=== PATIENT | female | born 1960 | race Caucasian/White ===

== ENCOUNTER 2018-10-07 12:20 | Observation (INO) | payer MEDICARE ==
[~2018-10-07] VITALS: Ht 170.2 cm; Wt 67.1 kg
[~2018-10-07 12:20] MED LIST: ALBU.083IS IH; ALBU3IS INH; ALBU90OI INH; ALBU90OI6 INH; ALBU90OI61 INH; ATENOLOL PO; AZIT250 PO; Ativan1 MG PO; BENZ100A PO; CEPACOL SORE T1 EACH MM; CIPR500 PO; Cyclobenzaprine5 MG PO; DOXY100 PO; FLUSAL2505; FLUSAL2505 INH; FLUSAL5005 INH; FLUT.05NI; Ferrousul325 MG PO; GUAI600T33 PO; HYDACE5; HYDACE5 PO; HYDCHL12.5 PO; HYDCHL25 PO; Hair, Skin & N1 EACH PO; LISHYD1012; LISI10; LISI20 PO; LISI5 PO; LORA1; LORA1 PO; MONT10T PO; OLME20; OMEP20ER PO; PRED10 PO; PRED20 PO; Percocet 5-3251 EACH PO; Prednisone20 MG PO; ROBITUSSIN COU118 M1 PO; SULTRIDS PO; TIOT18 INH; TUDORZA PRESS400 MCG; TUDORZA PRESS400 MCG IH; Ventolin Soln3 ML INH; Ventolin/Prove6.7 GM INH; Vibramycin100 MG PO; ZESTORETIC 20-1 EACH PO; Zithromax250 MG PO
[2018-10-07 13:21] LABS: BASOPHILS ABSOLUTE AUTO 0.06 K/mm3 (0.00-0.23); BASOPHILS PERCENT AUTO 1 % (0-2); EOSINOPHILS ABSOLUTE AUTO 0.56 K/mm3 (0.00-0.68); EOSINOPHILS PERCENT AUTO 10 % (0-6); Hematocrit 26.8 % (33.0-51.0); Hemoglobin 6.8 g/dL (11.5-16.0); IMMATURE GRAN ABSOLUTE AUTO 0.02 K/mm3 (0.00-0.10); IMMATURE GRAN PERCENT AUTO 0 % (0-1); LYMPHOCYTES PERCENT AUTO 22 % (21-46); MONOCYTES ABSOLUTE AUTO 0.49 K/mm3 (0.16-1.47); MONOCYTES PERCENT AUTO 8 % (4-13); Mean Corpuscular HGB Conc 25.4 g/dL (31.5-36.5); Mean Corpuscular Volume 67 fL (80-100); NEUTROPHILS ABSOLUTE AUTO 3.44 K/mm3 (1.96-9.15); NEUTROPHILS PERCENT AUTO 59 % (41-73); Platelet Count 533 K/mm3 (150-400); RDW Coefficient Variation 18.9 % (11.7-14.2); RDW Standard Deviation 44.5 fL (35.1-46.3); Red Blood Cell Count 4.01 M/mm3 (3.80-5.20); White Blood Cell Count 5.87 K/mm3 (4.00-11.30)
[2018-10-07 13:40] LABS: Alanine Aminotransfer (ALT/SGP 44 U/L (12-78); Albumin, Blood 3.4 g/dL (3.4-5.0); Albumin/Globulin Ratio 0.9 (0.8-1.8); Alk Phos 163 U/L (50-136); Anion Gap 8 mmol/L (6-16); Aspartate Aminotrans (AST/SGOT 31 U/L (12-37); Bilirubin, Total 0.3 mg/dL (0.1-1.0); Blood Urea Nitrogen 12 mg/dL (8-24); Bun/Creatinine Ratio 20.8 (12.0-20.0); CO2, Blood 25 mmol/L (21-32); Calcium, Blood 8.2 mg/dL (8.5-10.1); Chloride, Blood 107 mmol/L (98-108); Creatinine, Blood 0.58 mg/dL (0.40-1.00); Globulin, Blood 3.6 g/dL (2.2-4.0); Glomerular Filtration Rate >60 (60-); Glucose, Blood 93 mg/dL (70-99); Potassium, Blood 4.5 mmol/L (3.5-5.5); Sodium, Blood 140 mmol/L (136-145); Troponin I <0.015 ng/mL (0.000-0.040)
[2018-10-07 14:01] LABS: Influenza A Negative (NEGATIVE); Influenza B Negative (NEGATIVE)
--- NOTE | 2018-10-07 19:07 | NUR ---
NEW ADMIT SHIFT CHANGE ED ADMISSION. PATIENT ORIENTED TO ROOM AND BLOOD TRANSFUSION STARTED. CALL LIGHT IN REACH. REPORT GIVEN TO ONCOMING RN.
--- NOTE | 2018-10-08 04:59 | NUR ---
VSS, AFEBRILE, A/O, 20G R FA, PT COMPLETED HER 2 UNTIS PRBC W/OUT ADVERSE EFFECTS, PT C/O ANXIOUS AND WAS MEDICATED X 1, SLEPT WELL AFTER THAT. NO FURTHER COMPLAINTS.
--- NOTE | 2018-10-08 06:14 | NUR ---
INFECTION CONTROL CALLED ABOUT THE PT REGARDING HER STATUS ISOLATION FOR HISTORY OF MRSA. IT WAS DETERMINED THAT PT IS LOW RISK AND CAN BE REMOVED FROM ISOLATION IMMEDIATELY. WILL REPORT TO ON-COMING SHIFT.
[2018-10-08 06:59] LABS: Hematocrit 30.3 % (33.0-51.0)
[2018-10-08] MEDS ORDERED: ALBU90OI INH (08:50)
[2018-10-08] MEDS ORDERED: DULERA 200 MCG/13 GM INH (08:54)
[2018-10-08] MEDS ORDERED: Fruity C250 MG PO (08:55)
--- NOTE | 2018-10-08 09:54 | NUR ---
DISCHARGE DISCHARGE MEDICATIONS AND INSTRUCTIONS EXPLAINED TO PATIENT. PATIENT STATED UNDERSTANDING. IV REMOVED WITHOUT DIFFICULTY. BELONGINGS WITH PATIENT. PATIENT LEFT VIA PRIVATE VEHICLE.
== END 2018-10-08 09:46 | disposition home or self-care (01) ==
LOC: ER 12:20 → MEDS 12:21
PROVIDERS: Physician Assistant; ADMIT Hospitalist
DX: D50.9 Iron deficiency anemia, unspecified (principal); I10 Essential (primary) hypertension; J44.9 Chronic obstructive pulmonary disease, unspecified; K21.9 Gastro-esophageal reflux disease without esophagitis; Z88.0 Allergy status to penicillin; Z91.041 Radiographic dye allergy status; Z88.5 Allergy status to narcotic agent; Z79.899 Other long term (current) drug therapy; Z87.891 Personal history of nicotine dependence
CPT/HCPCS: 36415; 36416; 36430; 71046; 80053; 84484; 85014; 85018; 85025; 86850; 86900; 86901; 86923; 87804; 93005; 93010; 94640; 94644; 94760; 96374; 99285-25; G0378; J2930; J7050; P9016

== ENCOUNTER 2018-11-28 09:47 | Day surgery (SDC) | payer MEDICARE ==
[~2018-11-28] VITALS: Ht 170.2 cm; Wt 65.3 kg
[~2018-11-28 09:47] MED LIST changes: +DULERA 200 MCG/13 GM INH; +FLUT1DIS8 INH; +Fruity C250 MG PO; +LORA.5 PO; +TUDORZA PRESS400 MCG INH; +ZESTORETIC 20-251 EA PO
--- NOTE | 2018-11-28 11:10 | NUR ---
11/28/18 1110 Lucie Solis PT LS COARSE T/O AFTER BREATHING TREATMENT.
== END 2018-11-28 12:15 | disposition home or self-care (01) ==
LOC: ORSCSDS 09:47
PROVIDERS: Internal Medicine Gastroenterology
PROC: 0DJD8ZZ Inspection of Lower Intestinal Tract, Via Natural or Artificial Opening Endoscopic (ICD-10-PCS; principal; 2018-11-28 11:15)
DX: D50.9 Iron deficiency anemia, unspecified (principal); Z86.010 Personal history of colon polyps; F41.9 Anxiety disorder, unspecified; I10 Essential (primary) hypertension; K59.00 Constipation, unspecified; J44.9 Chronic obstructive pulmonary disease, unspecified; Z87.891 Personal history of nicotine dependence; Z79.899 Other long term (current) drug therapy
CPT/HCPCS: J7120

== ENCOUNTER 2018-12-26 09:57 | Day surgery (SDC) | payer MEDICARE ==
[~2018-12-26] VITALS: Ht 170.2 cm; Wt 65.0 kg
[~2018-12-26 09:57] MED LIST changes: +ALBU2.5V5
--- NOTE | 2018-12-26 12:08 | NUR ---
12/26/18 1208 Dyana Cornelius INJECTED INTO IRRIGATION PER DR ROWE.
== END 2018-12-26 12:53 | disposition home or self-care (01) ==
LOC: ORSCSDS 09:57
PROVIDERS: Internal Medicine Gastroenterology
PROC: 0DBL8ZX Excision of Transverse Colon, Via Natural or Artificial Opening Endoscopic, Diagnostic (ICD-10-PCS; principal; 2018-12-26 11:00)
DX: D50.9 Iron deficiency anemia, unspecified (principal); D12.3 Benign neoplasm of transverse colon; K59.00 Constipation, unspecified; Z86.010 Personal history of colon polyps; K57.30 Diverticulosis of large intestine without perforation or abscess without bleeding; K64.8 Other hemorrhoids; Z87.891 Personal history of nicotine dependence; J44.9 Chronic obstructive pulmonary disease, unspecified; I10 Essential (primary) hypertension; Z79.899 Other long term (current) drug therapy
CPT/HCPCS: 88305; J2250; J2704; J7120

== ENCOUNTER 2018-12-30 15:40 | Emergency (ER) | payer MEDICARE | END 2018-12-30 16:05 | disposition left against medical advice (07) | LOC: ER 15:40 | DX: Z53.21 Procedure and treatment not carried out due to patient leaving prior to being seen by health care provider (principal) ==

== ENCOUNTER 2019-07-24 18:03 | Observation (INO) | payer MEDICARE ==
[~2019-07-24] VITALS: Ht 170.2 cm; Wt 58.3 kg
[~2019-07-24 18:03] MED LIST changes: +ASPI325EC PO; +Norco 5-325 Ta1 EACH PO
[2019-07-24 18:33] LABS: BASOPHILS ABSOLUTE AUTO 0.01 K/mm3 (0.00-0.23); BASOPHILS PERCENT AUTO 0 % (0-2); EOSINOPHILS ABSOLUTE AUTO 0.01 K/mm3 (0.00-0.68); EOSINOPHILS PERCENT AUTO 0 % (0-6); Hematocrit 21.3 % (33.0-51.0); IMMATURE GRAN ABSOLUTE AUTO 0.05 K/mm3 (0.00-0.10); IMMATURE GRAN PERCENT AUTO 1 % (0-1); LYMPHOCYTES ABSOLUTE AUTO 0.28 K/mm3 (0.84-5.20); LYMPHOCYTES PERCENT AUTO 3 % (21-46); MONOCYTES ABSOLUTE AUTO 0.05 K/mm3 (0.16-1.47); MONOCYTES PERCENT AUTO 1 % (4-13); Mean Corpuscular HGB 14.5 pg (26.0-34.0); Mean Corpuscular HGB Conc 23.5 g/dL (31.5-36.5); Mean Corpuscular Volume 62 fL (80-100); Mean Platelet Volume 8.7 fL (9.1-12.4); NEUTROPHILS ABSOLUTE AUTO 8.94 K/mm3 (1.96-9.15); NEUTROPHILS PERCENT AUTO 96 % (41-73); Platelet Count 500 K/mm3 (150-400); RDW Coefficient Variation 20.2 % (11.7-14.2); RDW Standard Deviation 43.9 fL (35.1-46.3); Red Blood Cell Count 3.46 M/mm3 (3.80-5.20); White Blood Cell Count 9.34 K/mm3 (4.00-11.30)
[2019-07-24 18:51] LABS: Alanine Aminotransfer (ALT/SGP 21 U/L (12-78); Albumin, Blood 3.1 g/dL (3.4-5.0); Albumin/Globulin Ratio 0.8 (0.8-1.8); Alk Phos 151 U/L (50-136); Anion Gap 8 mmol/L (6-16); Aspartate Aminotrans (AST/SGOT 19 U/L (12-37); Bilirubin, Total 0.4 mg/dL (0.1-1.0); Blood Urea Nitrogen 11 mg/dL (8-24); Bun/Creatinine Ratio 20.4 (12.0-20.0); CO2, Blood 21 mmol/L (21-32); Calcium, Blood 8.2 mg/dL (8.5-10.1); Chloride, Blood 107 mmol/L (98-108); Creatinine, Blood 0.54 mg/dL (0.40-1.00); Globulin, Blood 3.7 g/dL (2.2-4.0); Glomerular Filtration Rate >60 (60-); Glucose, Blood 131 mg/dL (70-99); Potassium, Blood 3.7 mmol/L (3.5-5.5); Sodium, Blood 136 mmol/L (136-145); Total Protein, Blood 6.8 g/dL (6.4-8.2); Troponin I <0.015 ng/mL (0.000-0.040)
[2019-07-24 19:55] LABS: Source, Urine Clean Catch
[2019-07-24 20:00] LABS: Appearance, Urine Clear (Clear); Bilirubin, Urine Neg (Neg); Blood, Urine Neg (Neg); Color, Urine Yellow (P-Yellow); Glucose Qualitative, Urine Neg (Neg); Ketones, Urine Neg (Neg); Leukocyte Esterase, Urine 3+ (Neg); Nitrite, Urine Neg (Neg); Protein, Urine Neg (Neg); Specific Gravity, Urine 1.015 (1.003-1.022); Urobilinogen, Urine NORM (Normal)
[2019-07-24 20:31] LABS: Bacteria Few /hpf; Red Blood Cells, Urine 0-2 /hpf (0-2); Squamous Epithelial Cells Few /hpf (Few)
[2019-07-24] MEDS ORDERED: LORA.5 PO (20:45)
--- NOTE | 2019-07-25 02:33 | NUR ---
Patient alert and oriented. B/P elevated to 200/100s, hydralazine given. No complaints of chest pain or SOB. 2 units of PRBC transfused. Ambulating to bathroom with standby assist. Voiding freely. Tolerating Po intake.
[2019-07-25 04:50] LABS: Hematocrit 26.2 % (33.0-51.0); Hemoglobin 7.1 g/dL (11.5-16.0); Mean Corpuscular HGB 17.2 pg (26.0-34.0); Mean Corpuscular HGB Conc 27.1 g/dL (31.5-36.5); Mean Corpuscular Volume 63 fL (80-100); Mean Platelet Volume 8.7 fL (9.1-12.4); NRBC ABSOLUTE 0.08 K/mm3 (0.00-0.02); NRBC Auto 0.9 /100 WBC (0.0-0.2); Platelet Count 510 K/mm3 (150-400); Red Blood Cell Count 4.13 M/mm3 (3.80-5.20); White Blood Cell Count 8.55 K/mm3 (4.00-11.30)
[2019-07-25 05:11] LABS: Alanine Aminotransfer (ALT/SGP 19 U/L (12-78); Albumin, Blood 3.2 g/dL (3.4-5.0); Albumin/Globulin Ratio 0.9 (0.8-1.8); Alk Phos 157 U/L (50-136); Anion Gap 7 mmol/L (6-16); Aspartate Aminotrans (AST/SGOT 14 U/L (12-37); Bilirubin, Total 2.2 mg/dL (0.1-1.0); Blood Urea Nitrogen 13 mg/dL (8-24); Bun/Creatinine Ratio 21.3 (12.0-20.0); CO2, Blood 24 mmol/L (21-32); Calcium, Blood 8.6 mg/dL (8.5-10.1); Chloride, Blood 108 mmol/L (98-108); Creatinine, Blood 0.61 mg/dL (0.40-1.00); Globulin, Blood 3.7 g/dL (2.2-4.0); Glomerular Filtration Rate >60 (60-); Glucose, Blood 111 mg/dL (70-99); Potassium, Blood 3.7 mmol/L (3.5-5.5); Sodium, Blood 139 mmol/L (136-145); Total Protein, Blood 6.9 g/dL (6.4-8.2)
--- NOTE | 2019-07-25 07:15 | NUR ---
REPORT REC'D FROM CORINA ZURITA. PT AWAKE, A&O, ASSESSMENT NOTED. REPORTS FEELING SLEEPY FROM ALL THE ACTIVITY LAST NIGHT AND WANTING TO SLEEP UNDISTURBED. REQUESTED YOGURT AND APPLEJUICE - PROVIDED THEN DOOR CLOSED FOR PRIVACY AND QUIET. WILL ADMINISTER MEDS ORDERED AND MONITOR ACCORDING TO P&P AND PRN. CALL LIGHT IN REACH.
[2019-07-25 09:47] LABS: Adenovirus Not Detected (NOT DETECT); Bordetella pertussis Not Detected (NOT DETECT); Chlamydophila pneumoniae Not Detected (NOT DETECT); Coronavirus 229E Not Detected (NOT DETECT); Coronavirus HKU1 Not Detected (NOT DETECT); Coronavirus NL63 Not Detected (NOT DETECT); Coronavirus OC43 Not Detected (NOT DETECT); Human Metapneumovirus Not Detected (NOT DETECT); Human Rhinovirus/Enterovirus Detected (NOT DETECT); Influenza A Not Detected (NOT DETECT); Influenza A/2009-H1 Not Detected (NOT DETECT); Influenza A/H1 Not Detected (NOT DETECT); Influenza A/H3 Not Detected (NOT DETECT); Influenza B Not Detected (NOT DETECT); Mycoplasma pneumoniae Not Detected (NOT DETECT); Parainfluenza Virus 1 Not Detected (NOT DETECT); Parainfluenza Virus 2 Not Detected (NOT DETECT); Parainfluenza Virus 3 Not Detected (NOT DETECT); Parainfluenza Virus 4 Not Detected (NOT DETECT); Respiratory Syncytial Virus Not Detected (NOT DETECT)
--- NOTE | 2019-07-25 14:15 | NUR ---
LAST UNIT PRBC'S INFUSED. NO COMPLICATIONS. VSS. DC INSTRUCTIONS PROVIDED TO PT AND S.O. WRITTEN AND VERBAL. PT ASKED FOR SCRIPTS. NONE WERE PROVIDED PT WAS BEING DISCHARGED ON CURRENT HOME MEDICATIONS. PT STATED SHE HAD NONE OF THE MEDS AT HOME. I PLACED A CALL TO [facility] TO VERIFY THEY HAD HER CURRENT MEDS WITH AVAILABLE REFILLS FOR BOTH INHALERS AND BP MEDS. IN ADDITON, [facility] PROVIDED COUPONS FOR DISCOUNT WHEN PICKING UP SCRIPTS. IV DC'D INTACT. PT STATED UNDERSTANDING OF INSRUCTIONS.
== END 2019-07-25 14:28 | disposition home or self-care (01) ==
LOC: ER 18:03 → PCU 18:04
PROVIDERS: Emergency Medicine; ADMIT Internal Medicine
DX: D50.9 Iron deficiency anemia, unspecified (principal); K44.9 Diaphragmatic hernia without obstruction or gangrene; G31.89 Other specified degenerative diseases of nervous system; F41.9 Anxiety disorder, unspecified; I10 Essential (primary) hypertension; R07.9 Chest pain, unspecified; K21.9 Gastro-esophageal reflux disease without esophagitis; F15.11 Other stimulant abuse, in remission; J44.1 Chronic obstructive pulmonary disease with (acute) exacerbation; F17.200 Nicotine dependence, unspecified, uncomplicated; Z88.8 Allergy status to other drugs, medicaments and biological substances; Z88.0 Allergy status to penicillin; Z88.5 Allergy status to narcotic agent; Z91.041 Radiographic dye allergy status; Z79.899 Other long term (current) drug therapy; Z79.82 Long term (current) use of aspirin; Z79.51 Long term (current) use of inhaled steroids
CPT/HCPCS: 0099U; 36415; 36430; 71046; 80053; 81001; 83880; 84484; 85025; 85027; 86850; 86900; 86901; 86923; 87081; 87086; 90686; 93005; 93010; 94640; 94760; 96374; 99285-25; C9113; J0360; J1650; J2916; J2930; J7030; J7512; P9016

== ENCOUNTER 2019-08-24 11:32 | Inpatient (IN) | payer MEDICARE ==
[~2019-08-24] VITALS: Ht 170.2 cm; Wt 60.0 kg
[~2019-08-24 11:32] MED LIST changes: +ALBU2.5V5 INH
[2019-08-24] MEDS ORDERED: ALBUTEROL (12:18)
[2019-08-24 12:22] LABS: BASOPHILS ABSOLUTE AUTO 0.11 K/mm3 (0.00-0.23); BASOPHILS PERCENT AUTO 1 % (0-2); EOSINOPHILS ABSOLUTE AUTO 0.82 K/mm3 (0.00-0.68); EOSINOPHILS PERCENT AUTO 4 % (0-6); Hematocrit 35.9 % (33.0-51.0); Hemoglobin 10.2 g/dL (11.5-16.0); IMMATURE GRAN ABSOLUTE AUTO 0.14 K/mm3 (0.00-0.10); IMMATURE GRAN PERCENT AUTO 1 % (0-1); LYMPHOCYTES ABSOLUTE AUTO 1.38 K/mm3 (0.84-5.20); LYMPHOCYTES PERCENT AUTO 6 % (21-46); MONOCYTES ABSOLUTE AUTO 1.26 K/mm3 (0.16-1.47); MONOCYTES PERCENT AUTO 5 % (4-13); Mean Corpuscular HGB 20.4 pg (26.0-34.0); Mean Corpuscular HGB Conc 28.4 g/dL (31.5-36.5); Mean Corpuscular Volume 72 fL (80-100); Mean Platelet Volume 8.3 fL (9.1-12.4); NEUTROPHILS ABSOLUTE AUTO 19.83 K/mm3 (1.96-9.15); NEUTROPHILS PERCENT AUTO 84 % (41-73); Platelet Count 431 K/mm3 (150-400); RDW Coefficient Variation 26.6 % (11.7-14.2); RDW Standard Deviation 66.5 fL (35.1-46.3); Red Blood Cell Count 5.01 M/mm3 (3.80-5.20); White Blood Cell Count 23.54 K/mm3 (4.00-11.30)
[2019-08-24 12:43] LABS: Alanine Aminotransfer (ALT/SGP 200 U/L (12-78); Albumin, Blood 3.4 g/dL (3.4-5.0); Albumin/Globulin Ratio 0.7 (0.8-1.8); Alk Phos 246 U/L (50-136); Anion Gap 8 mmol/L (6-16); Aspartate Aminotrans (AST/SGOT 198 U/L (12-37); Bilirubin, Total 0.3 mg/dL (0.1-1.0); Blood Urea Nitrogen 17 mg/dL (8-24); Bun/Creatinine Ratio 26.4 (12.0-20.0); CO2, Blood 23 mmol/L (21-32); Calcium, Blood 8.9 mg/dL (8.5-10.1); Chloride, Blood 107 mmol/L (98-108); Creatinine, Blood 0.65 mg/dL (0.40-1.00); Globulin, Blood 4.6 g/dL (2.2-4.0); Glomerular Filtration Rate >60 (60-); Glucose, Blood 126 mg/dL (70-99); Potassium, Blood 4.7 mmol/L (3.5-5.5); Sodium, Blood 138 mmol/L (136-145); Troponin I <0.015 ng/mL (0.000-0.040)
[2019-08-24 16:34] LABS: Base Excess Venous -1.5 mmol/L; Bicarbonate Venous 22.9 mmol/L (24.0-30.0); PCO2 Venous 40.4 mmHg (38-42); PO2 Venous 41.4 mmHg (38-42); pH Blood Venous 7.38 (7.34-7.37)
--- NOTE | 2019-08-24 22:22 | NUR ---
START OF SHIFT: REPORT FROM JEAN RN. PT LYING IN BED WATCHING TV. ASSESSMENT WITH PT CONTINUING HTN (PRIOR VALUES NOTED T/O DAY SHIFT). PT'S HOME MEDICATIONS VERIFIED AND HOSPITLIST NOTIFIED (SEE NEW ORDERS). PT LS COARSE T/O C EXP WHEEZE (SAME NOTED ON ADMIT PER MED), PT SATS 96-97% ON RA WHILE AWAKE. 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 PT STATED THAT SHE WAS SO TIRED AND JUST WANTED TO SLEEP. PT ALSO STATES, "THIS IS THE BEST SLEEP THAT I'VE HAD IN A WHILE". NO ATIVAN ORDERED. PT LATER INDEPENDENTLY UP OUT OF BED TO TOILET, THIS RN ENTERED ROOM FROM HEARING PT UP. PT AMBULATED SELF TO RESTROOM PUSHING IV POLE WITHOUT DIFFICULTY AND NO C/O INCREASED SOB. PT STATED, "THIS IS WHAT I DO AT HOME, EXCEPT I DON'T HAVE THIS (IV POLE)" PT USES CALL LIGHT APPROPRIATELY, WILL CONTINUE TO MONITOR.
--- NOTE | 2019-08-25 00:44 | NUR ---
UPDATE/MD NOTIFIED: PT FAMILY VISITED THEN WENT HOME. PT UP TO RESTROOM THEN C/O INCREASED SOB AND ANXIETY. VITALS PT REMAINS HYPERTENSIVE, SATS ONCE BACK TO BED 84% ON RA. PT REQUESTED BIPAP-DARÍO RT TO ROOM AND REQUESTED PT TO TRY THE ATIVAN AGAIN. DR. QUIROS NOTIFIED AND UPDATED. NEW ORDERS FOR ATIVAN AND HYDRALAZINE (SEE NEW ORDERS). WILL CONTINUE TO MONITOR.
--- NOTE | 2019-08-25 01:50 | NUR ---
CP/SOB: PT C/O CRUSHING CP AND INCREASED SOB. EKG DONE. DR. QUIROS NOTIFIED. NEW ORDERS TO GET ABG PRIOR TO APPLYING OXYGEN. STAT TROPONIN. DARÍO RT, LEARNING AND DEVELOPMENT ASSISTANT, AND LAB NOTIFIED.
[2019-08-25 01:58] LABS: PCO2 Arterial 28.9 mmHg (35-45); PO2 Arterial 62.3 mmHg (80-100); pH Blood Arterial 7.48 (7.35-7.45)
[2019-08-25 02:13] LABS: BASOPHILS ABSOLUTE AUTO 0.05 K/mm3 (0.00-0.23); BASOPHILS PERCENT AUTO 0 % (0-2); EOSINOPHILS ABSOLUTE AUTO 0.01 K/mm3 (0.00-0.68); EOSINOPHILS PERCENT AUTO 0 % (0-6); Hematocrit 32.1 % (33.0-51.0); IMMATURE GRAN ABSOLUTE AUTO 0.27 K/mm3 (0.00-0.10); IMMATURE GRAN PERCENT AUTO 1 % (0-1); LYMPHOCYTES ABSOLUTE AUTO 0.91 K/mm3 (0.84-5.20); LYMPHOCYTES PERCENT AUTO 3 % (21-46); MONOCYTES ABSOLUTE AUTO 0.31 K/mm3 (0.16-1.47); MONOCYTES PERCENT AUTO 1 % (4-13); Mean Corpuscular HGB 20.3 pg (26.0-34.0); Mean Corpuscular Volume 73 fL (80-100); Mean Platelet Volume 8.3 fL (9.1-12.4); NEUTROPHILS ABSOLUTE AUTO 29.31 K/mm3 (1.96-9.15); NEUTROPHILS PERCENT AUTO 95 % (41-73); Platelet Count 394 K/mm3 (150-400); RDW Coefficient Variation 26.2 % (11.7-14.2); RDW Standard Deviation 67.1 fL (35.1-46.3); Red Blood Cell Count 4.43 M/mm3 (3.80-5.20); White Blood Cell Count 30.86 K/mm3 (4.00-11.30)
[2019-08-25 02:31] LABS: Anion Gap 8 mmol/L (6-16); Blood Urea Nitrogen 13 mg/dL (8-24); Bun/Creatinine Ratio 28.6 (12.0-20.0); CO2, Blood 23 mmol/L (21-32); Calcium, Blood 9.5 mg/dL (8.5-10.1); Chloride, Blood 108 mmol/L (98-108); Creatinine, Blood 0.46 mg/dL (0.40-1.00); Glomerular Filtration Rate >60 (60-); Glucose, Blood 142 mg/dL (70-99); Sodium, Blood 139 mmol/L (136-145)
[2019-08-25 02:38] LABS: Percent Saturation 3.5 % (15.0-50.0)
--- NOTE | 2019-08-25 02:58 | NUR ---
DR. MURPHY NOTIFIED: ORDERS TO KEEP PT PCU STATUS FOR NOW, PLACE ON BIPAP, ADMINISTER 2-3 BRONCHODILATORS BACK TO BACK.
--- NOTE | 2019-08-25 04:42 | NUR ---
UPDATE: PT TOLERATING BIPAP WELL. PT CURRENTLY SLEEPING. SATS 94%. HR 119. BIPAP: 10/5, RATE 12, FiO2 25%.
--- NOTE | 2019-08-25 08:31 | NUR ---
PT EXPRESSED UPSET ABOUT HER DIET ORDER AND STS THAT SHE WISHES TO LEAVE, CALLING DR DAVENPORT TO PDATE
--- NOTE | 2019-08-25 11:44 | NUR ---
PT BEGINS SHOUTING THAT SHE "NEEDS ATIVAN" STS THAT IS THE ONLY WAY SHE WILL BE ABLE TO WEAR BIPAP MASK, PT NOTIFIED THAT ORDERS WILL NEED TO BE REVIEWED PT STS "YOU HAVE IT ORDERED THE RT SAID I NEED IT" PT EDUCATED THAT THERE ARE NO NEW ORDERS FOR ATIVAN OR PRN PT STS "WELL I DON'T KNOW WHAT TO DO THEN" PT IS NOW HOLDING BIPAP MASK TO HER FACE WITH HAND. VSS 99% ON 2L NC, HR 123
--- NOTE | 2019-08-25 19:05 | NUR ---
ATTEMPTED BEDSIDE REPORT WITH PT. PT APPEARS TO BE SLEEPING, DID NOT WAKE. PT HAS REMAINED STABLE SINCE ASSUMING CARE AT 1500. PT STILL WITH OCCASIONAL WHEEZY COUGH, VSS, WAS ABLE TO TURN O2 DOWN TO 2L SINCE PT MAINTAING 94-95%. ALL SCHED MEDS GIVEN. NO OTHER ACUTE CHANGES NOTED.
--- NOTE | 2019-08-25 20:15 | NUR ---
CARE ASSUMPTION PT A&O X4. VSS. MONITOR SHOWS ST, HR 110's. SPO2 > 90% ON 2L NC. LUNG SOUNDS DIM T/O. PT TEARFUL, STATING, "I'M SORRY, I'M JUST READY TO BE OUT OF HERE. THERE'S NOTHING WRONG WITH ME ANYMORE, I'M JUST READY TO GO." PT DENIES SOB OR DIFFICULTY BREATHING. WILL CONTINUE TO MONITOR AND PROVIDE CARE.
[2019-08-26 04:04] LABS: BASOPHILS ABSOLUTE AUTO 0.03 K/mm3 (0.00-0.23); BASOPHILS PERCENT AUTO 0 % (0-2); EOSINOPHILS PERCENT AUTO 0 % (0-6); Hematocrit 30.1 % (33.0-51.0); Hemoglobin 8.3 g/dL (11.5-16.0); IMMATURE GRAN ABSOLUTE AUTO 0.47 K/mm3 (0.00-0.10); IMMATURE GRAN PERCENT AUTO 2 % (0-1); LYMPHOCYTES ABSOLUTE AUTO 0.72 K/mm3 (0.84-5.20); LYMPHOCYTES PERCENT AUTO 3 % (21-46); MONOCYTES ABSOLUTE AUTO 0.52 K/mm3 (0.16-1.47); MONOCYTES PERCENT AUTO 2 % (4-13); Mean Corpuscular HGB 20.1 pg (26.0-34.0); Mean Corpuscular HGB Conc 27.6 g/dL (31.5-36.5); Mean Corpuscular Volume 73 fL (80-100); Mean Platelet Volume 8.4 fL (9.1-12.4); NEUTROPHILS PERCENT AUTO 94 % (41-73); Platelet Count 410 K/mm3 (150-400); RDW Coefficient Variation 26.7 % (11.7-14.2); Red Blood Cell Count 4.12 M/mm3 (3.80-5.20); White Blood Cell Count 28.24 K/mm3 (4.00-11.30)
[2019-08-26 04:22] LABS: Anion Gap 7 mmol/L (6-16); Blood Urea Nitrogen 23 mg/dL (8-24); Bun/Creatinine Ratio 39.2 (12.0-20.0); CO2, Blood 25 mmol/L (21-32); Calcium, Blood 8.9 mg/dL (8.5-10.1); Chloride, Blood 110 mmol/L (98-108); Creatinine, Blood 0.59 mg/dL (0.40-1.00); Glomerular Filtration Rate >60 (60-); Glucose, Blood 122 mg/dL (70-99); Potassium, Blood 4.1 mmol/L (3.5-5.5); Sodium, Blood 142 mmol/L (136-145)
--- NOTE | 2019-08-26 04:31 | NUR ---
SHIFT SUMMARY PT CONTINUES TO BE A&O X4. VSS. MONITOR SHOWS ST, HR 110's. SPO2 > 90% ON RA TITRATED FROM 2L NC. BIPAP AT BEDSIDE, UNUSED BY PT THIS SHIFT. LUNG SOUNDS DIM T/O. PT W/ EPISODE OF TEARFULNESS UPON CARE ASSUMPTION W/ NO FURTHER EPISODES THIS SHIFT. PT PLEASANT AND COOPERATIVE, REPORTING HUNGER ONLY COMPLAINT THIS SHIFT STATING, "THE CARDIAC TRAYS JUST DON'T HAVE ENOUGH FOOD." PT PROVIDED W/ SNACKS THIS SHIFT REQUESTED BY PT, FOLLOWING DIET ORDERS. PT INDEPENDENT IN ROOM W/ FAMILY MEMBER AT BEDSIDE T/O NIGHT. WILL CONTINUE TO MONITOR AND PROVIDE CARE UNTIL REPORT OFF TO DAY SHIFT RN.
--- NOTE | 2019-08-26 08:00 | NUR ---
PT PLEASANT COOP A/O. DENIES PAIN AT THIS TIME. H/R IRREG, NO MURMER NOTED. PER TELE S TACH AT 112. LUNGS CLEAR UPPER WITH LIGHT COARSNESS IN BASES. ON R.A. BT X4 LAST BM TODAY. STATES WAS ON FIRM SIDE. VOIDS PER BATHROOM. INDEPENDANT ON ROOM. BED IN LOW POSITION, CALL LITE IN REACH, CALLS APPRP
[2019-08-26 09:48] LABS: Vancomycin, Trough 10.5 ug/mL (5.0-10.0)
[2019-08-26 11:09] LABS: Thyroid Stimulating Hormone 0.173 uIU/mL (0.360-4.800)
[2019-08-26 12:35] LABS: Free Thyroxine 0.82 ng/dL (0.70-1.60)
[2019-08-26 12:37] LABS: Triiodothyronine, Free 1.33 pg/mL (2.18-3.98)
--- NOTE | 2019-08-26 14:29 | NUR ---
[facility] care visit conducted. Patient is lying in bed and alert. Patient tells me about her stress and the business of her life. 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 Patient tells me about her lisa systemn that is a mix of Oriental Orthodox, Gnosticist and . I listen empathically, normalize patient's experience, reinforce helpful attitudes and practices and provide spiritual guidance and prayer. Patient responds well and shows signs of reduced stress. I will continue remain available to patient and family.
--- NOTE | 2019-08-26 15:18 | NUR ---
DR GARCIA D/Tre IVF
--- NOTE | 2019-08-26 19:55 | NUR ---
PT PLEASANT TODAY. HUSB IN ROOM MUCH OF DAY. PLEASANT ALSO. PT STATES FEELING SLOW IMPROVEMENT. MAY GET TO GO HOME TOMORROW PER PT. NO OTHER CONCERNS AT THIS TIME. BED IN LOW POSITIOIN, CALL LITE IN REACH, CALLS APPROP
[2019-08-27 04:42] LABS: BASOPHILS ABSOLUTE AUTO 0.04 K/mm3 (0.00-0.23); BASOPHILS PERCENT AUTO 0 % (0-2); EOSINOPHILS ABSOLUTE AUTO 0.01 K/mm3 (0.00-0.68); EOSINOPHILS PERCENT AUTO 0 % (0-6); Hematocrit 30.6 % (33.0-51.0); Hemoglobin 8.5 g/dL (11.5-16.0); IMMATURE GRAN ABSOLUTE AUTO 0.69 K/mm3 (0.00-0.10); IMMATURE GRAN PERCENT AUTO 3 % (0-1); LYMPHOCYTES ABSOLUTE AUTO 1.02 K/mm3 (0.84-5.20); LYMPHOCYTES PERCENT AUTO 4 % (21-46); MONOCYTES ABSOLUTE AUTO 0.55 K/mm3 (0.16-1.47); MONOCYTES PERCENT AUTO 2 % (4-13); Mean Corpuscular HGB 20.2 pg (26.0-34.0); Mean Corpuscular HGB Conc 27.8 g/dL (31.5-36.5); Mean Corpuscular Volume 73 fL (80-100); Mean Platelet Volume 8.2 fL (9.1-12.4); NEUTROPHILS ABSOLUTE AUTO 20.67 K/mm3 (1.96-9.15); NEUTROPHILS PERCENT AUTO 90 % (41-73); NRBC ABSOLUTE 0.03 K/mm3 (0.00-0.02); NRBC Auto 0.1 /100 WBC (0.0-0.2); Platelet Count 425 K/mm3 (150-400); RDW Coefficient Variation 26.4 % (11.7-14.2); RDW Standard Deviation 67.7 fL (35.1-46.3); Red Blood Cell Count 4.21 M/mm3 (3.80-5.20); White Blood Cell Count 22.98 K/mm3 (4.00-11.30)
[2019-08-27 05:00] LABS: Alanine Aminotransfer (ALT/SGP 109 U/L (12-78); Anion Gap 5 mmol/L (6-16); Aspartate Aminotrans (AST/SGOT 45 U/L (12-37); Blood Urea Nitrogen 26 mg/dL (8-24); Bun/Creatinine Ratio 47.9 (12.0-20.0); CO2, Blood 26 mmol/L (21-32); Calcium, Blood 8.5 mg/dL (8.5-10.1); Chloride, Blood 111 mmol/L (98-108); Creatinine, Blood 0.54 mg/dL (0.40-1.00); Glomerular Filtration Rate >60 (60-); Glucose, Blood 121 mg/dL (70-99); Magnesium, Blood 2.1 mg/dL (1.6-2.4); Potassium, Blood 4.1 mmol/L (3.5-5.5); Sodium, Blood 142 mmol/L (136-145)
--- NOTE | 2019-08-27 07:55 | NUR ---
SHIFT SUMMARY PT SLEEPING IN ROOM COMFORTABLY AT THIS TIME. NO ACUTE CHANGES IN STATUS T/O NIGHT. PT REMAINED IN ST T/O NIGHT, DENIED ANY CP OR SOB. RESP EVEN UNLABORED ON RA W/ SATS >92%. PT BP REMAINED ELEVATED T/O NIGHT. CARDIOLOGY ON CASE. PT DENIED OTHER NEEDS T/O NIGHT. RECEIVED IV ABX PER EMAR. CALL LIGHT IN REACH. PT CALLED APPROPRIATELY.
--- NOTE | 2019-08-27 10:10 | NUR ---
AM NOTE. ASSUMED CARE OF PT APROX 0700. PT IS A&Ox4 AND SBA/IND IN THE ROOM. PT WAS ADMITTED FOR COPD EXAC. PT IS ALSO VERY HYPERTENSIVE 172/110. PT DENIES CHEST PAIN/PRESSURE OR HEADACHE AT THIS TIME. PT WAS MEDICATED PER EMAR WITH GOOD RESULTS OF 151/91. PT IS ON RA WITH O2 SATS >92%. L/S DIM AND COARSE T/O. PT IS SR/ST IN THE 90'S-100'S, NO EVENTS NOTED ON TELE. BT PRESENT AND NORMOACTIVE. ABD IS SOFT AND NONTENDER TO PALP. PT HAS BEEN ANXIOUS AND TEARFUL THIS AM. CALL LIGHT IN REACH, WILL CONTINUE TO MONITOR.
[2019-08-27 10:22] LABS: U Amphetamine Screen Not Detected; U Barbituate Screen Not Detected; U Benzodiazapine Screen Not Detected; U Buprenorphine Screen Not Detected; U Cannabinoids Screen Not Detected; U Cocaine Screen Not Detected; U Methadone Screen Not Detected; U Methamphetamine Screen Not Detected; U Opiates Screen Not Detected; U Oxycodone Screen Not Detected; U Phencyclidine Screen Not Detected; U Propoxyphene Screen Not Detected
--- NOTE | 2019-08-27 13:41 | NUR ---
Met pt. in bed and she reports to be doing well offered prayers.
[2019-08-27 14:06] LABS: Stool Occult Blood Guaiac 1 Pos (Neg)
[2019-08-27 14:38] LABS: Adenovirus Not Detected (NOT DETECT); Bordetella pertussis Not Detected (NOT DETECT); Chlamydophila pneumoniae Not Detected (NOT DETECT); Coronavirus 229E Not Detected (NOT DETECT); Coronavirus HKU1 Not Detected (NOT DETECT); Coronavirus NL63 Not Detected (NOT DETECT); Coronavirus OC43 Not Detected (NOT DETECT); Human Metapneumovirus Not Detected (NOT DETECT); Human Rhinovirus/Enterovirus Not Detected (NOT DETECT); Influenza A Not Detected (NOT DETECT); Influenza A/2009-H1 Not Detected (NOT DETECT); Influenza A/H1 Not Detected (NOT DETECT); Influenza A/H3 Not Detected (NOT DETECT); Influenza B Not Detected (NOT DETECT); Mycoplasma pneumoniae Not Detected (NOT DETECT); Parainfluenza Virus 1 Not Detected (NOT DETECT); Parainfluenza Virus 2 Not Detected (NOT DETECT); Parainfluenza Virus 3 Not Detected (NOT DETECT); Parainfluenza Virus 4 Not Detected (NOT DETECT); Respiratory Syncytial Virus Not Detected (NOT DETECT)
--- NOTE | 2019-08-27 18:21 | NUR ---
SHIFT SUMMARY. NO ACUTE NEGATIVE CHANGES NOTED THIS SHIFT. PT DENIES CHEST PAIN/PRESSURE N/V OR INCREASED SOB. PT HAS BEEN HYPERTENSIVE MOST OF THE SHIFT. PT HAS BEEN MEDICATED PER EMAR FOR HTN. PT WAS GIVEN IRON INFUSION, PT TOLERATED THIS WELL. PT HAS HAD FAMILY AT THE BEDSIDE OFF AND ON T/O THE DAY. PT IS VERY ANXIOUS TO GO HOME. CALL LIGHT IN REACH, BED IS LOCKED AND LOW WILL CONTINUE TO MONITOR UNTIL REPORT IS GIVEN TO ON COMING RN.
[2019-08-28 04:12] LABS: Alanine Aminotransfer (ALT/SGP 85 U/L (12-78); Albumin, Blood 2.7 g/dL (3.4-5.0); Albumin/Globulin Ratio 0.8 (0.8-1.8); Alk Phos 139 U/L (50-136); Anion Gap 8 mmol/L (6-16); Aspartate Aminotrans (AST/SGOT 17 U/L (12-37); Bilirubin, Total 0.2 mg/dL (0.1-1.0); Blood Urea Nitrogen 26 mg/dL (8-24); Bun/Creatinine Ratio 39.6 (12.0-20.0); CO2, Blood 26 mmol/L (21-32); Calcium, Blood 8.3 mg/dL (8.5-10.1); Chloride, Blood 109 mmol/L (98-108); Creatinine, Blood 0.66 mg/dL (0.40-1.00); Globulin, Blood 3.3 g/dL (2.2-4.0); Glomerular Filtration Rate >60 (60-); Glucose, Blood 109 mg/dL (70-99); Potassium, Blood 4.3 mmol/L (3.5-5.5); Sodium, Blood 143 mmol/L (136-145)
[2019-08-28 05:08] LABS: HBSAG SCREEN Negative (Negative); HEP B CORE AB, TOT Negative (Negative); HEP C VIRUS AB <0.1 (0.0-0.9)
--- NOTE | 2019-08-28 05:35 | NUR ---
SHIFT SUMMARY PT SLEEPING IN ROOM COMFORTABLY AT THIS TIME. NO ACUTE CHANGES IN STATUS/ PT SLEPT WELL DENIED NEEDS. INDEPENDENT IN ROOM. RESP EVEN UNLABORED ON RA W/ SATS >92%. PT DENIED ANY CP OR SOB T/O NIGHT. BP REMAINES ELEVATED. PT DECLINED PRN CARDIZEM DURING NIGHT, REQUESTED BP TO BE RECHECKED AFTER AN HOUR OF REST. BP CHECKED AND DOWN FROM SBP OF 189 TO SBP 161. PT REPORTS FEELS FINE AND DOES NOT WANT PRN CARDIZEM AT THIS TIME. SPOUSE AT BEDSIDE. CALL LIGHT IN REACH.
--- NOTE | 2019-08-28 09:08 | NUR ---
AM NOTE. ASSUMED CARE OF PT APROX 0700. PT IS A&Ox4 AND SBA IN THE ROOM. PT WAS ADMITTED FOR COPD EXAC. PT IS CURRENTLY ON RA WITH O2 SATS >94%. PT HAS BEEN HYPERTENSIVE, MEDICATIONS CHANGED BY CARDIOLOGY PROVIDER THIS AM. PER CARDIOLOGY PT IS TO HAVE ECHO DONE BEFORE D/C HOME. PT IS ANXIOUS TO D/C HOME TODAY. NO EDEMA IS NOTED ON ASSESSMENT, PT IS IN NSR/ST 90'S-100'S. L/S CLEAR/DIM IN THE UPPER LOBES AND DIM/COARSE IN THE LOWER LOBES. BT PRESENT AND NORMOACTIVE, ABD IS SOFT AND NONTENDER TO PALP. PT DENIES ANY NUMB/TINGLING. CALL LIGHT IN REACH, BED IS LOCKED AND LOW WILL CONTINUE TO MONITOR.
--- NOTE | 2019-08-28 11:40 | NUR ---
Initial palliative care consult: Zarina is a 58 year old lady with a history of HTN, COPD, iron deficiency anemia, history of methanphetamine abuse, last use about a month ago. She had been feeling increasingly SOB over several days and was admitted on 08/24/19. Zarina lives with her spouse and her younger sister. 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 She reports her is a and has back problems. Her sister has a history of a heart attack and multiple strokes and is unable to live alone and care for herself any longer. Her son and two grandchildren spend every Sunday, Sunday and Sunday at her home as well. Zarina is followed by Dr. Encarnacion as an outpatient for her COPD. She reports that she doesn't use oxygen at home and is afraid that one day she may need too. She is currently on RA and maintaining her oxygen saturation in the low to mids 90s during our conversation. She does have a non-productive cough and does become SOB with activity. She reports at home she can work in the kitchen making a meal for about 10 minutes before she has to sit down for 10-15 minutes to recover from being winded. Discussed COPD as a chronic illness and how to manage symptoms at home to prevent readmissions. She reports having alleriges to her dogs and to dust and mold/mildew. She takes benedryl for her allergies but doesn't like taking it as it makes her drowsy. Encouraged her to discuss alterative antihistamines with her provider that she could use that will not interact with medications that she takes or make her too drowsy. Encouraged self care. She verbalizes that she is a caregiver by nature. She states she is feeling better and is anxious to go home. She states that she doesn't sleep well in the hospital and did not sleep well last night. She reports that sometimes she has panic attacks and on occasion has ativan at home to help with her anxiety. Shes reports sciatic pain with coughing. She states at home she takes an over the counter pain reliever and this is effective in managing her sciatic pain. She has a history of iron deficiency anemia. An echo is planned for today and she is hoping to be able to go home after that happens. She states she has paperwork that needs to be completed before her birthday which is in two days from now. She is at high risk for readmit due to her COPD and her desire to remain the caregiver for multiple family members. She remains a full code at this time. PC will continue to follow for disease and symptom manaement. .
--- NOTE | 2019-08-28 11:55 | NUR ---
Pt. is in bed and having some heart test wished pt. all the best and prayed for her.
--- NOTE | 2019-08-28 14:28 | NUR ---
Echocardiogram completed.
[2019-08-28] MEDS ORDERED: LOSA25 PO (14:31)
[2019-08-28] MEDS ORDERED: FAMO20 PO (14:32)
[2019-08-28] MEDS ORDERED: ALBU3IS INH (14:35)
[2019-08-28] MEDS ORDERED: PRED20 PO (14:35)
[2019-08-28] MEDS ORDERED: VERAPAMIL ER120 M1 PO (14:37)
== END 2019-08-28 16:40 | disposition home or self-care (01) | DRG 190 ==
LOC: ER 11:32 → PCU 14:12
PROVIDERS: Emergency Medicine; Internal Medicine; Internal Medicine Cardiovascular Disease; Internal Medicine Critical Care Medicine; ADMIT Internal Medicine
DX: J44.1 Chronic obstructive pulmonary disease with (acute) exacerbation (principal); J96.01 Acute respiratory failure with hypoxia; E44.0 Moderate protein-calorie malnutrition; I10 Essential (primary) hypertension; Z87.891 Personal history of nicotine dependence; D50.9 Iron deficiency anemia, unspecified; I51.7 Cardiomegaly; E03.9 Hypothyroidism, unspecified
CPT/HCPCS: 0099U; 36415; 36416; 36600; 71045; 76705; 80048; 80053; 80202; 82272; 82728; 82803; 82947; 83540; 83550; 83605; 83735; 84145; 84439; 84443; 84450; 84460; 84481; 84484; 85025; 86704; 86708; 86803; 87040; 87070; 87205; 87340; 93005; 93010; 93306; 93308; 93321; 94640; 94644; 94660; 94664; 94667; 94760; 94761; 94762; 96361; 96374; 98960; 99285-25; J0360; J0456; J0696; J1100; J1650; J1750; J2060; J2930; J3370; J7030; J7040; J7050; J7120; J7512

== ENCOUNTER 2019-09-30 03:53 | Inpatient (IN) | payer MEDICARE ==
[~2019-09-30] VITALS: Ht 162.6 cm; Wt 58.4 kg
[~2019-09-30 03:53] MED LIST changes: +ALBUTEROL; +FAMO20 PO; +LOSA25 PO; +VERAPAMIL ER120 M1 PO
[2019-09-30 04:15] LABS: BASOPHILS ABSOLUTE AUTO 0.07 K/mm3 (0.00-0.23); BASOPHILS PERCENT AUTO 1 % (0-2); EOSINOPHILS ABSOLUTE AUTO 1.11 K/mm3 (0.00-0.68); EOSINOPHILS PERCENT AUTO 13 % (0-6); Hematocrit 51.4 % (33.0-51.0); Hemoglobin 14.7 g/dL (11.5-16.0); IMMATURE GRAN ABSOLUTE AUTO 0.05 K/mm3 (0.00-0.10); IMMATURE GRAN PERCENT AUTO 1 % (0-1); LYMPHOCYTES ABSOLUTE AUTO 2.26 K/mm3 (0.84-5.20); LYMPHOCYTES PERCENT AUTO 26 % (21-46); MONOCYTES ABSOLUTE AUTO 0.61 K/mm3 (0.16-1.47); MONOCYTES PERCENT AUTO 7 % (4-13); Mean Corpuscular HGB 24.7 pg (26.0-34.0); Mean Corpuscular HGB Conc 28.6 g/dL (31.5-36.5); Mean Corpuscular Volume 86 fL (80-100); Mean Platelet Volume 8.6 fL (9.1-12.4); NEUTROPHILS ABSOLUTE AUTO 4.65 K/mm3 (1.96-9.15); NEUTROPHILS PERCENT AUTO 53 % (41-73); Platelet Count 406 K/mm3 (150-400); RDW Coefficient Variation 22.6 % (11.7-14.2); RDW Standard Deviation 70.3 fL (35.1-46.3); Red Blood Cell Count 5.95 M/mm3 (3.80-5.20); White Blood Cell Count 8.75 K/mm3 (4.00-11.30)
[2019-09-30 04:18] LABS: PCO2 Arterial 61.5 mmHg (35-45); PO2 Arterial 93.3 mmHg (80-100)
[2019-09-30 04:20] LABS: pH Blood Arterial 7.25 (7.35-7.45)
[2019-09-30 04:34] LABS: Alanine Aminotransfer (ALT/SGP 49 U/L (12-78); Albumin, Blood 3.8 g/dL (3.4-5.0); Alk Phos 144 U/L (50-136); Anion Gap 5 mmol/L (6-16); Aspartate Aminotrans (AST/SGOT 33 U/L (12-37); Bilirubin, Total 0.2 mg/dL (0.1-1.0); Blood Urea Nitrogen 19 mg/dL (8-24); Bun/Creatinine Ratio 29.4 (12.0-20.0); CO2, Blood 24 mmol/L (21-32); Chloride, Blood 113 mmol/L (98-108); Creatinine, Blood 0.65 mg/dL (0.40-1.00); Glomerular Filtration Rate >60 (60-); Glucose, Blood 135 mg/dL (70-99); Potassium, Blood 4.1 mmol/L (3.5-5.5); Sodium, Blood 142 mmol/L (136-145); Total Protein, Blood 7.8 g/dL (6.4-8.2); Troponin I <0.015 ng/mL (0.000-0.040)
[2019-09-30 06:49] LABS: Influenza A Negative (NEGATIVE); Influenza B Negative (NEGATIVE)
--- NOTE | 2019-09-30 06:49 | NUR ---
ADMIT ASSESSMENT PT ADMITTED TO ICU 02, PCU STATUS. PT ARRIVED VIA GURNEY. TRANSFERED TO BED BY STAFF WITH SLIDER SHEET. LUNGS WITH INSP AND EXP WHEEZES AND DECREASED IN THE BASES. BIPAP 12/5 FIO2 40%. NASAL AND THROAT SWAB DONE FOR MRSA AND FLU. HEART RATE REGULAR, BP HTN. MED WITH LABATOLOL 10 MG. BT+ ABD SOFT AND NONTENDER. IV 20G TO LEFT HAND SALINE LOCKED, SITE CLEAR. 18G RIGHT HAND FLUSHED AND SOLUMEDEROL, LABATOLOL AND ANTIBOTIC STARTED. FLU SHOT GIVEN. NO EDEMA. PT VERY SLEEPY, UNABLE TO ANSWER QUESTION AT THIS TIME.
--- NOTE | 2019-09-30 14:00 | NUR ---
UPDATE PT HAS BEEN SLEEPING/LETHARGIC. WHEN AWAKE SHE IS ANXIOUS AND DOESN'T WANT TO TAKE MASK OFF, AND IT IS HARD TO UNDERSTAND HER WHEN SHE SPEAKS WITH BIPAP ON. I HAVE PLACED A CALL TO , BUT NO ANSWER. SATS ARE GREAT IN THE 90'S ALL DAY, RR WHEN ASLEEP IS MUCH BETTER. WHEN AWAKE SHE GETS INTO THE UPPER 20'S, LOWER 30'S. NO SIGNS OF DISTRESS.
--- NOTE | 2019-09-30 17:35 | NUR ---
UPDATE WHEN PT IS AWAKE SHE IS ANXIOUS, TACHYPNEIC, AND STATES SHE CANNOT BREATHE. HOWEVER, SHE MAINTAINS HER SAT'S IN THE MID 90'S. SHE DOES HAVE EXPIRATORY WHEEZES. SHE HAS BEEN ASLEEP FOR MAJORITY OF SHIFT, HER RR DECREASES AND SHE APPEARS TO HAVE NO DISTRESS. ONE TIME WHEN SHE WOKE UP, SHE WAS VERY ANXIOUS AND SAYING SHE HAD CHEST PAIN, THAT FELT LIKE PRESSURE. SHE WAS TACHYCARDIC. SO I PLACED A CALL TO DR. HAMEED, DID AN EKG AND PUT IN AN ORDER FOR TROPONIN BLOOD DRAW, AND A ONE TIME DOSE OF ATIVAN. EKG AND TROPONIN CAME BACK NORMAL, AND THAT ATIVAN ALLOWED HER TO RELAX. SHE HAS NOT COMPLAINED OF CHEST PAIN SINCE THEN. SHE REMAINS ON BIPAP. HR REMAINS 95-110
--- NOTE | 2019-09-30 19:34 | NUR ---
SHIFT SUMMARY PT ALTERNATES FROM BEING AWAKE, ANXIOUS AND DYSPNEIC TO ASLEEP/LETHARGIC, WITH NO RESP DISTRESS. SHE HAS MAINTAINED HER SATS (>92%) ALL DAY. SHE HAD AN ANXIETY ATTACK WHERE SHE HAD CHEST PAIN (SEE PREVIOUS NOTE FOR DETAILS). SHE HAS EXPRIATORY WHEEZES THROUGHOUT. SHE BENEFITS FROM HER ALBUTEROL TREATMENTS. SHE HAS BEEN HYPERTENSIVE, SBP UP TO 180, ONE DOSE OF LABETOLOL WAS GIVEN WITH GOOD RESULTS. PT DID VOID. PT HAS A HARSH, HACKING, NONPRODUCTIVE COUGH. BED IS LOW AND LOCKED. CALLL LIGHT WITHIN REACH. SAID HE WOULD BRING LIST OF MEDS TOMORROW TO CONFIRM WITH MED REC.
[2019-09-30 22:49] LABS: PCO2 Arterial 46.4 mmHg (35-45); pH Blood Arterial 7.36 (7.35-7.45)
--- NOTE | 2019-09-30 23:00 | NUR ---
CALLED Sandy ACKERMAN, HOG HANDLER DUE TO PT WAKING UP AND FEELING SOB AND PANICKY. STATES. "I DON'T KNOW WHAT TO DO!" SHE THEN REQUESTED ATIVAN. Sandy ACKERMAN ORDERED A STAT ABG. BREATHING TREATMENT GIVEN. RESULTS SHOWED PT HAD A LOW O2. O2 INCREASED TO 45% ON CPAP. RESTING WITH EASE AT THIS TIME. SAFETY MEASURES IN PLACE. WILL CONTINUE TO MONITOR.
--- NOTE | 2019-10-01 06:12 | NUR ---
SHIFT SUMMARY HAD 2 EPISODES OF COUGHING CREATING A SOB EPISODE. 2ND TIME PT'S HAND WAS HELD AND SHE WAS CALMED AND TALKED THROUGH THE EPISODE. BREATH SOUNDS WHEEZY IN ALL MERCHANT. 6AM SOLUMEDROL AND RESPIRATORY TREATMENT GIVEN, TOLERATEED WERLL. HAS RESTED WELL SINCE. DENIES PAIN, DISCOMFORT, OR FURTHER NEEDS AT THIS TIME. SAFETY MEASURES IN PLACE. WILL GIVE HAND OFF TO ONCOMING SHIFT USING SBAR DURING BEDSIDE REPORT.
--- NOTE | 2019-10-01 07:30 | NUR ---
START OF SHIFT NOTE: RECEIVED REPORT FROM PARMINDER KAY, ASSUMED CARE, PATIENT IS AWAKE AND CURRENTLY ON BIPAP, SETTINGS ARE 12/5, FiO2 45 %, DENIES PAIN, AFEBRILE, ALERT AND ORIENTED, LUNGS SOUNDS ARE COARSE AND WHEEZY ON RLL, SINUS TACHY WITH HR IN 117, SBP SLIGHTLY ELEVATED IN 160'S, BOWEL TONES PRESENT, PATIENT UP TO BSC AND VOIDED 800 CC OF CLEAR YELLOW URINE, HAD SHORT COUGHING SPELL, PEDAL PULSES STRONG, SCD'S IN PLACE, PATIENT HAD SOME SIPS OF WATER, CALL LIGHT IN REACH, WILL CONTINUE TO MONITOR.
--- NOTE | 2019-10-01 08:30 | NUR ---
DR. HAMEED IN TO SEE PATIENT, NEW ORDERS RECEIVED.
--- NOTE | 2019-10-01 11:07 | NUR ---
RT IN TO GIVE BREATHING TREATMENT REQUESTED BY PATIENT AFTER SHE WOKE UP ON NASAL CANNULA AND HAD COUGHING SPELL.
--- NOTE | 2019-10-01 13:00 | NUR ---
PATIENT SLEEPING, EASILY AROUSEABLE, RESTING COMFORTABLY ON 4L NC AT THIS TIME, O2 SATS AT 98 %, CALL LIGHT IN REACH, WILL CONTINUE TO MONITOR.
--- NOTE | 2019-10-01 14:05 | NUR ---
Pt. in bed resting and is doing well, offered Prayers.
--- NOTE | 2019-10-01 15:24 | NUR ---
REPORT CALLED TO PARMINDER BRYANT, ON PCU, PATIENT WILL TRANSFER TO ROOM PCU 15 VIA WHEELCHAIR.
--- NOTE | 2019-10-01 18:43 | NUR ---
Initial spiritual care note: Zarina is very pleasant and talkative. She lives with her spouse and her sister. She is hopeful for complete recovery and said she is not worried at all. She spoke about her family with great love and appeared to enjoy gentle counseling services manager and encouragement. Mainly, she was hunry and thirsty and I brought her something to snack on and drink with RN permission. No fears/concerns presented. I will remain available.
--- NOTE | 2019-10-01 18:44 | NUR ---
PT ARRIVED TO ROOM FROM ICU. DROP ISO FOR MRSA. LS CLEAR. ON 4L O2. A&O X4, BTX4. VISITORS AT BEDSIDE. PT HAD GOOD APPETITE TODAY AFTER BEING NPO YEST. NO NEEDS SINCE ARRIVAL. NO SIG CHANGES. NO MEDS DUE UNTIL 2099. CURENTLY WATCHING TV CALL LIGTH IN REACH.
--- NOTE | 2019-10-01 20:00 | NUR ---
ASSUMPTION OF CARE: PT A&O, AWAKE IN BED. IN ST, HR IN THE 110S, SBP STABLE IN THE 150S. LUNG SOUNDS COARSE WITH EXP WHEEZES. SPO2 >90% ON 3L NC. 18G IN R HAND PATENT AND SL. CALL LIGHT IN REACH, BED IN LOWEST POSITION. WILL CONTINUE TO MONITOR
--- NOTE | 2019-10-02 03:59 | NUR ---
PT UP TO BATHROOM. WHEN PT WENT BACK TO BED SHE BEGAN COUGHING. SPO2 84-89%. INCREASED O2 TO 5L NC AND CALLED RT. RT IN ROOM.
--- NOTE | 2019-10-02 05:18 | NUR ---
SHIFT SUMMARY: PT A&O. IN ST MAJORITY OF SHIFT. HR IN THE 110S, SBP IN THE 130-150. PT DID WELL ON 3L NC. HOWEVER PT BEGAN COUGHING AND DESATTED AFTER USING RESTROOM INTO THE MID TO HIGH 80S. O2 INCREASED TO 5L NC AND PT SPO2 INCREAED TO 90-91% HOWEVER PT CHEST AND LUNGS TIGHT AND SHE CONTINUED TO COUGH. RT CALLED, BREATHING TX DONE, AND PT WAS PLACED ON BIPAP. SETTINGS ARE 14/7/FIO2 45%. PT TOLERATED WELL. 18G IN R HAND PATENT AND SL. AT BEDSIDE. BED IN LOWEST POSITION, CALL LIGHT IN REACH. WILL PASS REPORT ON TO ONCOMING SHIFT
--- NOTE | 2019-10-02 07:18 | NUR ---
ASSUMED CARE: PT RESTING IN BED, SPOUSE AT BEDSIDE. O2 NC BETWEEN 2-5L FOR DESATS WITH ACTIVITY. NO ACUTE NEEDS OR CONCERNS AT THIS TIME.
--- NOTE | 2019-10-02 10:30 | NUR ---
PT WAS CONCERNED THAT SHE HAS NOT RECIEVED ANY OF HER CARDIAC MEDICATIONS SINCE SHE HAS BEEN HERE. DISCUSSED WITH DR HAMEED. NO NEW ORDERS AT THIS TIME.
--- NOTE | 2019-10-02 12:30 | NUR ---
CALL TO PT'S PHARMACY TO VERIFY DOSING OF MEDICATIONS. CALL TO DR HAMEED WITH UPDATED MED REC. STATES SHE WILL ENTER FURTHER ORDERS
--- NOTE | 2019-10-02 13:57 | NUR ---
Pt. is sitting up in her bed for her lunch doing well offered prayers for the pt.
--- NOTE | 2019-10-02 15:30 | NUR ---
REPORT CALLED TO PARMINDER RUBIN. PT TRANSFERRED TO 331 VIA WHEEL CHAIR BY HOSPITAL STAFF. PT STATED THAT SHE WOULD TELL HER ABOUT THE TRANSFER. DENIED FURTHER NEEDS OR CONCERNS.
--- NOTE | 2019-10-02 17:58 | NUR ---
PT ARRIVED TO UNIT AT 1600 VIA WHEELCHAIR. PT ORIENTATED TO ROOM. PT REQUESTS BREATHING TREATMENT, RT PROVIDED. PT MAINTAINING O2 SATS.
--- NOTE | 2019-10-02 22:42 | NUR ---
BEGINNING SHIFT SUMMARY ASSUMED CARE OF PT AT 1900. PT IS A/O X4, DENIES N/T IN EXTREMITIES. HEART SOUNDS REGULAR, LUNG SOUNDS DIMINISHED, PT WAS ON OXYGEN BUT WAS TAKEN OFF BY RT DUE TO SATURATIONS ABOVE 95% WITHOUT, PT STILL GETS BREATHING TREATMENTS. PT IS ANXIOUS AT TIMES, BUT IS CURRENTLY SLEEPING, CALL LIGHT IN REACH, BED IN LOWEST POSTION, WILL CONTINUE TO MONITOR.
--- NOTE | 2019-10-03 04:26 | NUR ---
COUGHING FIT PT AWOKE DUE TO A COUGH, PT COULD NOT CATCH HER BREATH IN BETWEEN COUGHING. OXYGEN ABOVE 90%, O2 ADMINISTERED AT 2L, RT CALLED AND GAVE BREATHING TREATMENT. HOSPITALIST CALLED TO GET ORDER FOR COUGH MEDICINE. PT HAS CALMED DOWN AND IS SLEEPING. CALL LIGHT IN REACH, BED IN LOWEST POSTION, WILL CONTINUE TO MONITOR.
--- NOTE | 2019-10-03 04:36 | NUR ---
END SHIFT SUMMARY PT IS CURRENTLY SLEEPING, PT HAD SMALL COUGHING FIT, MEDICATED PER EMAR, PT STILL ON O2 FOR COMFORT, SATURATION ABOVE 90%. CALL LIGHT IN REACH, BED IN LOWEST POSTION, WILL CONTINUE TO MONITOR UNTIL DAYSHIFT NURSE ARRIVES.
[2019-10-03 05:22] LABS: BASOPHILS ABSOLUTE AUTO 0.01 K/mm3 (0.00-0.23); BASOPHILS PERCENT AUTO 0 % (0-2); EOSINOPHILS PERCENT AUTO 0 % (0-6); Hematocrit 43.4 % (33.0-51.0); Hemoglobin 12.9 g/dL (11.5-16.0); IMMATURE GRAN ABSOLUTE AUTO 0.06 K/mm3 (0.00-0.10); IMMATURE GRAN PERCENT AUTO 1 % (0-1); LYMPHOCYTES ABSOLUTE AUTO 1.37 K/mm3 (0.84-5.20); LYMPHOCYTES PERCENT AUTO 11 % (21-46); MONOCYTES ABSOLUTE AUTO 0.94 K/mm3 (0.16-1.47); MONOCYTES PERCENT AUTO 8 % (4-13); Mean Corpuscular HGB Conc 29.7 g/dL (31.5-36.5); Mean Corpuscular Volume 84 fL (80-100); Mean Platelet Volume 8.2 fL (9.1-12.4); NEUTROPHILS ABSOLUTE AUTO 10.17 K/mm3 (1.96-9.15); NEUTROPHILS PERCENT AUTO 81 % (41-73); Platelet Count 366 K/mm3 (150-400); RDW Coefficient Variation 22.4 % (11.7-14.2); Red Blood Cell Count 5.15 M/mm3 (3.80-5.20); White Blood Cell Count 12.55 K/mm3 (4.00-11.30)
[2019-10-03 05:45] LABS: Magnesium, Blood 2.4 mg/dL (1.6-2.4)
[2019-10-03 05:48] LABS: Alanine Aminotransfer (ALT/SGP 25 U/L (12-78); Albumin, Blood 3.1 g/dL (3.4-5.0); Alk Phos 90 U/L (50-136); Anion Gap 5 mmol/L (6-16); Aspartate Aminotrans (AST/SGOT 6 U/L (12-37); Bilirubin, Total 0.3 mg/dL (0.1-1.0); Blood Urea Nitrogen 18 mg/dL (8-24); Bun/Creatinine Ratio 36.4 (12.0-20.0); CO2, Blood 28 mmol/L (21-32); Calcium, Blood 8.6 mg/dL (8.5-10.1); Chloride, Blood 110 mmol/L (98-108); Creatinine, Blood 0.49 mg/dL (0.40-1.00); Globulin, Blood 3.1 g/dL (2.2-4.0); Glomerular Filtration Rate >60 (60-); Glucose, Blood 94 mg/dL (70-99); Potassium, Blood 4.3 mmol/L (3.5-5.5); Sodium, Blood 143 mmol/L (136-145); Total Protein, Blood 6.2 g/dL (6.4-8.2)
--- NOTE | 2019-10-03 09:40 | NUR ---
Initial palliative care consult: Zarina is a 59 year old with a history of COPD, HTN, anemia, meth use. She has be hospitalized three times over the past three months for COPD symptoms. She reports that she is unable to afford her COPD medications at home. [employer] information given to her yesterday and she reports she has the form and will plan to call [employer]. Encouraged her to contact [employer] was soon as she is able too to inquire about assistance. She reports that Dr. Encarnacion is her certified credit counselor. She states that she missed her last appointment with him and she hopes that he will not be upset with her. COPD, disease process education given. Pt states she thinks her recent hospitalizations and increased SOB is from it being "This time of the year." Explained COPD and that it is a progressive illness. Mentioned the possibility of extra support in the home with the COPD high risk readmission program. She states that she is not interested in anyone coming into her home. She reports she lives with her and sister. 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 She states her sister smokes "Only in the laundry room." She also states that she occasionally will "Take a puff or two." Stressed the importance of not smoking or being around second hand smoke. Also discussed importance of taking medications and follow up care. Zarina appears to not understand her chronic illness. She has a cough and states she did not sleep well last night. She reports feeling fatigued. Visit kept short due to her fatigue. Emotional support given. Pt denies any needs at this time. Pt is at high risk for readmission. PC to continue to follow for disease process education, advanced care planning and symptom management.
[2019-10-03] MEDS ORDERED: MIRT30ST PO (16:20)
[2019-10-03] MEDS ORDERED: PRED20 PO (16:21)
[2019-10-03] MEDS ORDERED: AZIT500 PO (16:22)
[2019-10-03] MEDS ORDERED: GUAI600T33 PO (16:23)
--- NOTE | 2019-10-03 17:21 | NUR ---
PT DISCHARGED FROM THE UNIT, PT LEFT VIA WHEEL CHAIR WITH HER TO GO HOME. DISCHARGE INSTRUCTIONS REVIEWED, IV REMOVED. MEDCIATIONS FAXED TO [facility]. FOLLOW UP APPOINTMENT CALLED, OFFICE WILL CALL HER TO SCHEDULE APT.
== END 2019-10-03 17:04 | disposition home or self-care (01) | DRG 189 ==
LOC: ER 03:53 → ICUE 05:51 → ICUW 05:51 → ICUE 05:57 → PCU 10-01 15:45 → MEDS 10-02 15:31
PROVIDERS: Emergency Medicine; Internal Medicine; Nurse Practitioner Acute Care; ADMIT Hospitalist
PROC: 5A09357 Assistance with Respiratory Ventilation, Less than 24 Consecutive Hours, Continuous Positive Airway Pressure (ICD-10-PCS; principal; 2019-09-30)
PROC: 3E02340 Introduction of Influenza Vaccine into Muscle, Percutaneous Approach (ICD-10-PCS; 2019-09-30)
DX: J96.01 Acute respiratory failure with hypoxia (principal); G92 Toxic encephalopathy; J44.1 Chronic obstructive pulmonary disease with (acute) exacerbation; J96.22 Acute and chronic respiratory failure with hypercapnia; F41.9 Anxiety disorder, unspecified; F17.210 Nicotine dependence, cigarettes, uncomplicated; I16.0 Hypertensive urgency; Z23 Encounter for immunization; D64.9 Anemia, unspecified; E78.5 Hyperlipidemia, unspecified; D50.9 Iron deficiency anemia, unspecified; F19.11 Other psychoactive substance abuse, in remission; Z88.5 Allergy status to narcotic agent; Z88.0 Allergy status to penicillin; Z88.8 Allergy status to other drugs, medicaments and biological substances; Z79.52 Long term (current) use of systemic steroids
CPT/HCPCS: 36415; 36600; 71045; 80053; 82803; 83735; 84484; 85025; 87070; 87081; 87804; 90686; 93005; 93010; 94640; 94660; 94760; 94761; 94762; 96372-59; 96374; 96375; 99285-25; G0008; J0456; J1650; J2060; J2920; J2930; J7050; J7512

== ENCOUNTER 2019-12-08 06:00 | Day surgery (SDC) | payer MEDICARE ==
[~2019-12-08] VITALS: Ht 167.6 cm; Wt 62.0 kg
[~2019-12-08 06:00] MED LIST changes: +AZIT500 PO; +MIRT30ST PO
[2019-12-08 06:19] LABS: BASOPHILS ABSOLUTE AUTO 0.06 K/mm3 (0.00-0.23); BASOPHILS PERCENT AUTO 1 % (0-2); EOSINOPHILS ABSOLUTE AUTO 1.12 K/mm3 (0.00-0.68); EOSINOPHILS PERCENT AUTO 15 % (0-6); Hematocrit 41.3 % (33.0-51.0); Hemoglobin 12.6 g/dL (11.5-16.0); IMMATURE GRAN ABSOLUTE AUTO 0.04 K/mm3 (0.00-0.10); IMMATURE GRAN PERCENT AUTO 1 % (0-1); LYMPHOCYTES ABSOLUTE AUTO 1.61 K/mm3 (0.84-5.20); LYMPHOCYTES PERCENT AUTO 21 % (21-46); MONOCYTES PERCENT AUTO 9 % (4-13); Mean Corpuscular HGB 24.8 pg (26.0-34.0); Mean Corpuscular HGB Conc 30.5 g/dL (31.5-36.5); Mean Corpuscular Volume 81 fL (80-100); Mean Platelet Volume 8.5 fL (9.1-12.4); NEUTROPHILS ABSOLUTE AUTO 4.01 K/mm3 (1.96-9.15); NEUTROPHILS PERCENT AUTO 53 % (41-73); Platelet Count 383 K/mm3 (150-400); RDW Coefficient Variation 16.3 % (11.7-14.2); RDW Standard Deviation 47.7 fL (35.1-46.3); Red Blood Cell Count 5.09 M/mm3 (3.80-5.20); White Blood Cell Count 7.54 K/mm3 (4.00-11.30)
[2019-12-08] MEDS ORDERED: Prinivil10 MG (06:19)
[2019-12-08] MEDS ORDERED: ABAT250V (06:19)
[2019-12-08 06:35] LABS: Alanine Aminotransfer (ALT/SGP 39 U/L (12-78); Albumin, Blood 3.3 g/dL (3.4-5.0); Albumin/Globulin Ratio 0.9 (0.8-1.8); Anion Gap 6 mmol/L (6-16); Aspartate Aminotrans (AST/SGOT 37 U/L (12-37); Bilirubin, Total 0.2 mg/dL (0.1-1.0); Blood Urea Nitrogen 22 mg/dL (8-24); Bun/Creatinine Ratio 31.4 (12.0-20.0); CO2, Blood 27 mmol/L (21-32); Calcium, Blood 8.9 mg/dL (8.5-10.1); Chloride, Blood 109 mmol/L (98-108); Globulin, Blood 3.5 g/dL (2.2-4.0); Glomerular Filtration Rate >60 (60-); Glucose, Blood 84 mg/dL (70-99); Potassium, Blood 4.4 mmol/L (3.5-5.5); Sodium, Blood 142 mmol/L (136-145); Total Protein, Blood 6.8 g/dL (6.4-8.2)
[2019-12-08 06:36] LABS: Alk Phos 145 U/L (50-136)
[2019-12-08 08:05] LABS: PCO2 Arterial 44.8 mmHg (35-45); PO2 Arterial 73.5 mmHg (80-100); pH Blood Arterial 7.37 (7.35-7.45)
[2019-12-08 09:23] LABS: U Amphetamine Screen Not Detected; U Barbituate Screen Not Detected; U Benzodiazapine Screen Not Detected; U Buprenorphine Screen Not Detected; U Cannabinoids Screen Not Detected; U Cocaine Screen Not Detected; U Methadone Screen Not Detected; U Methamphetamine Screen Not Detected; U Opiates Screen Not Detected; U Oxycodone Screen Not Detected; U Phencyclidine Screen Not Detected; U Propoxyphene Screen Not Detected
[2019-12-08 11:04] LABS: U Amphetamine Screen Not Detected; U Barbituate Screen Not Detected; U Benzodiazapine Screen Not Detected; U Buprenorphine Screen Not Detected; U Cannabinoids Screen Not Detected; U Cocaine Screen Not Detected; U Methadone Screen Not Detected; U Methamphetamine Screen Not Detected; U Opiates Screen Not Detected; U Oxycodone Screen Not Detected; U Phencyclidine Screen Not Detected; U Propoxyphene Screen Not Detected
[2019-12-08 11:53] LABS: Adenovirus Not Detected (NOT DETECT); Bordetella pertussis Not Detected (NOT DETECT); Chlamydophila pneumoniae Not Detected (NOT DETECT); Coronavirus 229E Not Detected (NOT DETECT); Coronavirus HKU1 Not Detected (NOT DETECT); Coronavirus NL63 Not Detected (NOT DETECT); Coronavirus OC43 Not Detected (NOT DETECT); Human Metapneumovirus Not Detected (NOT DETECT); Human Rhinovirus/Enterovirus Not Detected (NOT DETECT); Influenza A/2009-H1 Not Detected (NOT DETECT); Influenza A/H1 Not Detected (NOT DETECT); Influenza A/H3 Not Detected (NOT DETECT); Influenza B Not Detected (NOT DETECT); Mycoplasma pneumoniae Not Detected (NOT DETECT); Parainfluenza Virus 1 Not Detected (NOT DETECT); Parainfluenza Virus 2 Not Detected (NOT DETECT); Parainfluenza Virus 3 Not Detected (NOT DETECT); Parainfluenza Virus 4 Not Detected (NOT DETECT); Respiratory Syncytial Virus Not Detected (NOT DETECT)
--- NOTE | 2019-12-08 11:59 | NUR ---
PT ARRIVED TO PCU 2 VIA GURCLARISSA FROM ED. REPORT OBTAINED FROM LYLE, SHE IS A/OX3, HIGH ANXIETY, RT IN ROOM, PLACED HER BACK ON BIPAP, HAD A HARD TIME AT FIRST FEELING LIKE SHE WASN'T GETTING AIR, LUNGS HAVE WHEEZING T/O, TIGHT, RESP EVEN MILD LABORING, REPORTS PRODUCTIVE COUGH OF YELLOW SPUTUM, HRR, TELE IN PLACE RUNNING SR TO ST PER MONITOR, SEE STRIP, NO EDEMA NOTED, PPP+2, CAP REFFILL <3SEC, VS STABLE, AFEBRILE, IV SITE IS CLEAR AND PATENT, BTX4, ABD FLAT SOFT NONTENDER, VOIDS WITH OUT DIFF, SKIN C/W/D, MEAW, MATT, CALL LIGHT IN REACH.
--- NOTE | 2019-12-08 16:29 | NUR ---
14:40 PT TO GO TO CHEST CT. HIGH ANX. CLIMBING OUT OF BED. ALMOST YELLING CANT DO WITH ONLY N/C. NEED BIPAP. TALKED TO RT. AVAIL TO TAKE TO CT. GAVE ATIVAN 0.5 MG TO HELP CALM. NO NOTICABLE CHANGE. TECH TOOK PT TO TRY ANYWAY. 15:10 PT RETURNED. NO WAY. TOO ANX. IS NOW ESCALATING MORE. UNABLE TO HARLY CONTAIN HER SELF. ADMIN SECOND HALF OF DOSE ATIVAN. RT TO GIVE BREATHING TX SHORTLY. MAY HELP 1545 RT TALKED TO ME. IS BARELY ABLE TO RESPOND TO ANSWERS. NEEDS LIGHT STERNAL RUB TO GET ATTEN AND ANSWER QUESTIONS. VSS. ON BIPAP AT 35% SET AT 14 RESP. IS BREATHING AT 20. WAS ABLE TO GET BASIC ADMIT DONE WITH LIGHT RUB FOR MAJORITY OF QUESTIONS.
--- NOTE | 2019-12-08 17:16 | NUR ---
AWAKE AND PT SITTING ON EDGE OF BED. BED ALARM ON FOR SAFETY. PUT BACK DOWN TO BED.
--- NOTE | 2019-12-08 18:33 | NUR ---
PT COOP BUT HIGHLY ANXIOUS. TRIED TO DO CHEST CT. PT NOT ABLE TO TOLERATE WITH ATIVAN. TRIED TO DO WITH BIPAP ASSISTANCE. STILL NOT ABLE. TOO ANX. GAVE SECOND PROTION OF ATIVAN DOSAGE. PT NOW SLEEPING, BIPAP SET AT 35% FIO2. RESP RATE BASE 14, PT RESP 18-20. OF2 UP TO 92-94%. DOES AWAKEN TO LIGHT STERNAL RUB/TOUCH. MUMBLES ANSWERS. HAS ATTEMPTED TO GET OUT OF BED TWICE. BED ALARM ON FOR SAFETY. BED IN LOW POSITION, CALL LITE IN REACH.
--- NOTE | 2019-12-08 18:59 | NUR ---
PETECHIAE NOTED RT F/A. AC TO WRIST. DISCUSSED WITH CHARGE.
--- NOTE | 2019-12-09 05:53 | NUR ---
Shift Summary At start of shift, pt lethargic but arrousable to verbal stimulus. Pt tolerated CT scan at approx 195 - she was transported by [facility]. This pt is rule out COVID-19 and is currently in airborne isolation d/t BIPAP. Pt wearing BIPAP at 25% FiO2. Pt is tolerating 2-4L NC for breaks. Overall, VSS. Normothermic, normotensive. Tachypneic at times, oxygenation saturations wnl during this shift. No episodes of desaturations noted. Pt is SBA to [facility] for voiding. She does not call appropriately, instead she sets off bed alarm. Pt has been redirected multiple times. No further ativan given after day shift. Pt remains lethargic all shift, arrousable, oriented once alert. Pt has been coopertive with care throughout shift. Will continue to monitor. Call light is within reach, bed alarm is on, intentional hourly rounding completed this shift and to be continued until day RN assumes care.
[2019-12-09 06:46] LABS: Alanine Aminotransfer (ALT/SGP 35 U/L (12-78); Albumin, Blood 3.4 g/dL (3.4-5.0); Albumin/Globulin Ratio 0.9 (0.8-1.8); Alk Phos 148 U/L (50-136); Anion Gap 7 mmol/L (6-16); Aspartate Aminotrans (AST/SGOT 17 U/L (12-37); Bilirubin, Total 0.5 mg/dL (0.1-1.0); Blood Urea Nitrogen 17 mg/dL (8-24); Bun/Creatinine Ratio 29.8 (12.0-20.0); CO2, Blood 25 mmol/L (21-32); Calcium, Blood 9.2 mg/dL (8.5-10.1); Chloride, Blood 109 mmol/L (98-108); Creatinine, Blood 0.57 mg/dL (0.40-1.00); Globulin, Blood 3.6 g/dL (2.2-4.0); Glomerular Filtration Rate >60 (60-); Glucose, Blood 128 mg/dL (70-99); Magnesium, Blood 2.3 mg/dL (1.6-2.4); Sodium, Blood 141 mmol/L (136-145)
[2019-12-09 06:59] LABS: BASOPHILS ABSOLUTE AUTO 0.01 K/mm3 (0.00-0.23); BASOPHILS PERCENT AUTO 0 % (0-2); EOSINOPHILS PERCENT AUTO 0 % (0-6); Hematocrit 42.7 % (33.0-51.0); IMMATURE GRAN ABSOLUTE AUTO 0.07 K/mm3 (0.00-0.10); IMMATURE GRAN PERCENT AUTO 1 % (0-1); LYMPHOCYTES ABSOLUTE AUTO 0.87 K/mm3 (0.84-5.20); LYMPHOCYTES PERCENT AUTO 10 % (21-46); MONOCYTES ABSOLUTE AUTO 0.31 K/mm3 (0.16-1.47); MONOCYTES PERCENT AUTO 3 % (4-13); Mean Corpuscular HGB 24.4 pg (26.0-34.0); Mean Corpuscular HGB Conc 30.4 g/dL (31.5-36.5); Mean Corpuscular Volume 80 fL (80-100); Mean Platelet Volume 9.2 fL (9.1-12.4); NEUTROPHILS ABSOLUTE AUTO 7.78 K/mm3 (1.96-9.15); NEUTROPHILS PERCENT AUTO 86 % (41-73); Platelet Count 375 K/mm3 (150-400); RDW Coefficient Variation 16.7 % (11.7-14.2); RDW Standard Deviation 47.2 fL (35.1-46.3); Red Blood Cell Count 5.33 M/mm3 (3.80-5.20); White Blood Cell Count 9.04 K/mm3 (4.00-11.30)
--- NOTE | 2019-12-09 07:06 | NUR ---
ASSUMED CARE REPORT FROM PARMINDER CONTRERAS. PATIENT IS IN AIRBORNE ISOLATION WHILE ON BIPAP FOR R/O COVID 19
--- NOTE | 2019-12-09 14:18 | NUR ---
MD VISIT DR. HAMEED IN.
--- NOTE | 2019-12-09 17:04 | NUR ---
PATIENT NOW ON RA. SAYS SHE MAY NEED BIPAP AGAIN AT NIGHT. 2 SNACKS AFTER LUNCH AND BEFORE DINNER.
--- NOTE | 2019-12-09 17:26 | NUR ---
PATIENT REQUESTS LARGE PORTIONS. PRN REQUEST SENT TO [facility]
--- NOTE | 2019-12-09 19:02 | NUR ---
VISITOR AT BEDSIDE. REPORT GIVEN TO PARMINDER RUBIN
[2019-12-10 03:58] LABS: BASOPHILS ABSOLUTE AUTO 0.02 K/mm3 (0.00-0.23); BASOPHILS PERCENT AUTO 0 % (0-2); EOSINOPHILS ABSOLUTE AUTO 0.01 K/mm3 (0.00-0.68); EOSINOPHILS PERCENT AUTO 0 % (0-6); Hematocrit 41.1 % (33.0-51.0); Hemoglobin 12.2 g/dL (11.5-16.0); IMMATURE GRAN ABSOLUTE AUTO 0.13 K/mm3 (0.00-0.10); IMMATURE GRAN PERCENT AUTO 1 % (0-1); LYMPHOCYTES ABSOLUTE AUTO 0.56 K/mm3 (0.84-5.20); LYMPHOCYTES PERCENT AUTO 3 % (21-46); MONOCYTES ABSOLUTE AUTO 0.39 K/mm3 (0.16-1.47); MONOCYTES PERCENT AUTO 2 % (4-13); Mean Corpuscular HGB 24.6 pg (26.0-34.0); Mean Corpuscular HGB Conc 29.7 g/dL (31.5-36.5); Mean Platelet Volume 8.8 fL (9.1-12.4); NEUTROPHILS ABSOLUTE AUTO 16.32 K/mm3 (1.96-9.15); NEUTROPHILS PERCENT AUTO 94 % (41-73); Platelet Count 360 K/mm3 (150-400); RDW Coefficient Variation 17.4 % (11.7-14.2); RDW Standard Deviation 50.7 fL (35.1-46.3); Red Blood Cell Count 4.96 M/mm3 (3.80-5.20); White Blood Cell Count 17.43 K/mm3 (4.00-11.30)
[2019-12-10 04:00] LABS: Mean Corpuscular Volume 83 fL (80-100)
--- NOTE | 2019-12-10 04:16 | NUR ---
SHIFT SUMMARY: PATIENT ATTEMPTED TO SLEEP WITHOUT BIPAP THIS SHIFT, BECAME VERY SOB WHEN USING THE BSC AND WAS RECOVERED WITH BIPAP. PATIENT SLEPT WITH/USED THE BIPAP FOR THE REST OF THE SHIFT, VSS, NO OTHER ISSUES NOTED, CALL LIGHT WITHIN REACH AND USED APPROPRIATLY.
[2019-12-10 04:26] LABS: Alanine Aminotransfer (ALT/SGP 29 U/L (12-78); Albumin, Blood 3.1 g/dL (3.4-5.0); Albumin/Globulin Ratio 0.9 (0.8-1.8); Alk Phos 116 U/L (50-136); Anion Gap 7 mmol/L (6-16); Aspartate Aminotrans (AST/SGOT 9 U/L (12-37); Bilirubin, Total 0.3 mg/dL (0.1-1.0); Blood Urea Nitrogen 24 mg/dL (8-24); Bun/Creatinine Ratio 46.1 (12.0-20.0); CO2, Blood 24 mmol/L (21-32); Calcium, Blood 8.6 mg/dL (8.5-10.1); Chloride, Blood 110 mmol/L (98-108); Creatinine, Blood 0.52 mg/dL (0.40-1.00); Globulin, Blood 3.4 g/dL (2.2-4.0); Glomerular Filtration Rate >60 (60-); Glucose, Blood 116 mg/dL (70-99); Potassium, Blood 4.1 mmol/L (3.5-5.5); Sodium, Blood 141 mmol/L (136-145); Total Protein, Blood 6.5 g/dL (6.4-8.2)
--- NOTE | 2019-12-10 11:16 | NUR ---
PT REPORTED NEW RASH AND ITCHING TO RIGHT ARM. NO RECENT MEDICATIONS ADMINISTERED. DR HAMEED NOTIFIED. ORDERS RECEIVED.
--- NOTE | 2019-12-10 14:17 | NUR ---
Pt. is in isolation and door close, in silent and i n elian prayed for the pt.
--- NOTE | 2019-12-10 18:01 | NUR ---
SHIFT SUMMARY PT IS A&O AND REPORTS SHE IS FEELING BETTER. PT WAS PLACED ON ROOM AIR THIS MORNING AND HAS MAINTAINED HER O2 LEVELS TODAY. VITALS HAVE REMAINED STABLE. PT WAS CHANGED TO MEDICAL STATUS WITH NO TELE BY DR TODAY. PRIOR TO REMOVAL OF TELE PT WAS IN A SINUS RHYTHM. SHORTLY BEFORE LUNCH PT C/O ITCHING AND RASH TO RIGHT ARM. DR NOTIFIED AND IV BENADRYL GIVEN. DIDN'T NOTE ANY WORSENING RASH OR NEW COMPLAINTS THIS EVENING. PT HAS REMAINED IN ENHANCED DROPLET ISOLATION PER PROTOCOL WHILE AWAITING TEST RESULTS.
--- NOTE | 2019-12-10 23:09 | NUR ---
ASSUMED CARE OF PATIENT AT APPROXIMATELY 2004 FROM CARYN Wills RN. PATIENT ALERT AND ORIENTED X4. ISOLATION TO R/O COVID 19; INDEPENDENT IN ROOM TO BATHROOM. PATIENT DENIES PAIN, NUMBNESS, TINGLING, DIZZINESS AND NAUSEA. PATIENT ANXIOUS. PATIENT HYPERTENSIVE AT SHIFT CHANGE; REPORTS SHE TAKES BP MEDICATION AT HOME AT BEDTIME. PATIENT GIVEN PRN IV HYDRALAZINE; DECREASED FROM 200'S TO 150'S. CALLED DR. PRESTON AT [facility] TO REQUEST PATIENT'S HOME DOSE; ORDERS RECIEVED. PATIENT IS MEDICAL NO TELE STATUS. OXYGEN SATURATION ABOVE 90% ON ROOM AIR. PATIENT CURRENTLY RESTING IN BED; CALL LIGHT IN REACH; BED IN LOWEST POSISTION; WILL CONTINUE TO MONITOR AND ASSESS UNTIL END OF SHIFT.
[2019-12-11 04:07] LABS: BASOPHILS ABSOLUTE AUTO 0.01 K/mm3 (0.00-0.23); BASOPHILS PERCENT AUTO 0 % (0-2); EOSINOPHILS PERCENT AUTO 0 % (0-6); Hematocrit 42.4 % (33.0-51.0); Hemoglobin 12.8 g/dL (11.5-16.0); IMMATURE GRAN ABSOLUTE AUTO 0.08 K/mm3 (0.00-0.10); IMMATURE GRAN PERCENT AUTO 1 % (0-1); LYMPHOCYTES ABSOLUTE AUTO 0.42 K/mm3 (0.84-5.20); LYMPHOCYTES PERCENT AUTO 3 % (21-46); MONOCYTES ABSOLUTE AUTO 0.17 K/mm3 (0.16-1.47); MONOCYTES PERCENT AUTO 1 % (4-13); Mean Corpuscular HGB 24.4 pg (26.0-34.0); Mean Corpuscular HGB Conc 30.2 g/dL (31.5-36.5); Mean Corpuscular Volume 81 fL (80-100); Mean Platelet Volume 8.6 fL (9.1-12.4); NEUTROPHILS ABSOLUTE AUTO 13.23 K/mm3 (1.96-9.15); NEUTROPHILS PERCENT AUTO 95 % (41-73); Platelet Count 401 K/mm3 (150-400); RDW Coefficient Variation 17.3 % (11.7-14.2); RDW Standard Deviation 49.7 fL (35.1-46.3); Red Blood Cell Count 5.24 M/mm3 (3.80-5.20); White Blood Cell Count 13.91 K/mm3 (4.00-11.30)
[2019-12-11 04:28] LABS: Alanine Aminotransfer (ALT/SGP 27 U/L (12-78); Albumin, Blood 3.2 g/dL (3.4-5.0); Albumin/Globulin Ratio 0.9 (0.8-1.8); Alk Phos 113 U/L (50-136); Anion Gap 6 mmol/L (6-16); Aspartate Aminotrans (AST/SGOT 11 U/L (12-37); Bilirubin, Total 0.3 mg/dL (0.1-1.0); Blood Urea Nitrogen 24 mg/dL (8-24); Bun/Creatinine Ratio 42.3 (12.0-20.0); CO2, Blood 26 mmol/L (21-32); Calcium, Blood 8.8 mg/dL (8.5-10.1); Chloride, Blood 112 mmol/L (98-108); Creatinine, Blood 0.57 mg/dL (0.40-1.00); Globulin, Blood 3.4 g/dL (2.2-4.0); Glomerular Filtration Rate >60 (60-); Glucose, Blood 124 mg/dL (70-99); Potassium, Blood 4.1 mmol/L (3.5-5.5); Sodium, Blood 144 mmol/L (136-145); Total Protein, Blood 6.6 g/dL (6.4-8.2)
--- NOTE | 2019-12-11 06:46 | NUR ---
NO ACUTE CHANGES TO REPORT. PATIENT SLEPT ABOUT EIGHT HOURS LAST NIGHT. VSS. WILL CONTINUE TO MONITOR AND ASSESS UNTIL END OF SHIFT.
--- NOTE | 2019-12-11 09:20 | NUR ---
This morning the pt had refused her breathing tx; stated that she didn't think that she needed. Lung sounds are wheezing throughout, but she denies feeling "tight" nor having any acute difficulty in breathing. sTates that she hopes that she will get to go home today. Appetite is good, and she has no complaints except that her IV site was uncomfortable during the azithromycin infusion. Site examined before initial saline flush, during infusion, and after infusion; no redness, no swelling, no infiltration, no leaking. NO rash nor other signs of adverse reaction.
[2019-12-11] MEDS ORDERED: LOSA50 PO (10:33)
[2019-12-11] MEDS ORDERED: AZIT250 PO (10:42)
[2019-12-11] MEDS ORDERED: BUDE.25 NEB (10:44)
[2019-12-11] MEDS ORDERED: PRED20 PO (10:47)
[2019-12-11] MEDS ORDERED: OMEP20ER PO (10:48)
[2019-12-11] MEDS ORDERED: Duoneb 2.5-0.5 M3 ML INH (11:19)
[2019-12-11] MEDS ORDERED: VERAPAMIL ER120 M1 PO (11:30)
--- NOTE | 2019-12-11 12:27 | NUR ---
Met pt. in bed resting offered prayers
== END 2019-12-11 13:30 | disposition home or self-care (01) ==
LOC: ER 06:00 → PCU 10:44 → ER 10:44 → MHTC 11:51 → PCU 12:04 → MHTC 12-11 13:30
PROVIDERS: Emergency Medicine; Internal Medicine; Nurse Practitioner Acute Care
DX: J44.1 Chronic obstructive pulmonary disease with (acute) exacerbation (principal); J96.01 Acute respiratory failure with hypoxia; J96.02 Acute respiratory failure with hypercapnia; I16.0 Hypertensive urgency; D72.829 Elevated white blood cell count, unspecified; T38.0X5A Adverse effect of glucocorticoids and synthetic analogues, initial encounter; I10 Essential (primary) hypertension; D50.9 Iron deficiency anemia, unspecified; F17.210 Nicotine dependence, cigarettes, uncomplicated; K21.9 Gastro-esophageal reflux disease without esophagitis; F41.1 Generalized anxiety disorder; F15.11 Other stimulant abuse, in remission; E78.5 Hyperlipidemia, unspecified; Z79.899 Other long term (current) drug therapy; Z88.5 Allergy status to narcotic agent; Z88.0 Allergy status to penicillin; Z91.041 Radiographic dye allergy status; G92 Toxic encephalopathy
CPT/HCPCS: 0099U; 36415; 36600; 71045; 71250; 80053; 82803; 83735; 85025; 93005; 93010; 94640; 94644; 94660; 94664; 94667; 94760; 94761; 94762; 96365; 98960; 99285-25; 99407; J0360; J0456; J1200; J1650; J2060; J2930; J7050

== ENCOUNTER 2020-03-07 06:19 | Emergency (ER) | payer MEDICARE, OTHER ==
[~2020-03-07] VITALS: Ht 170.2 cm; Wt 68.0 kg
[~2020-03-07 06:19] MED LIST changes: +ABAT250V; +BUDE.25 NEB; +Duoneb 2.5-0.5 M3 ML INH; +LOSA50 PO; +Prinivil10 MG
[2020-03-07 06:53] LABS: BASOPHILS ABSOLUTE AUTO 0.05 K/mm3 (0.00-0.23); BASOPHILS PERCENT AUTO 1 % (0-2); EOSINOPHILS ABSOLUTE AUTO 1.43 K/mm3 (0.00-0.68); EOSINOPHILS PERCENT AUTO 17 % (0-6); Hematocrit 41.9 % (33.0-51.0); Hemoglobin 12.9 g/dL (11.5-16.0); IMMATURE GRAN ABSOLUTE AUTO 0.03 K/mm3 (0.00-0.10); IMMATURE GRAN PERCENT AUTO 0 % (0-1); LYMPHOCYTES ABSOLUTE AUTO 1.93 K/mm3 (0.84-5.20); LYMPHOCYTES PERCENT AUTO 23 % (21-46); MONOCYTES ABSOLUTE AUTO 0.68 K/mm3 (0.16-1.47); MONOCYTES PERCENT AUTO 8 % (4-13); Mean Corpuscular HGB 25.7 pg (26.0-34.0); Mean Corpuscular HGB Conc 30.8 g/dL (31.5-36.5); Mean Corpuscular Volume 84 fL (80-100); Mean Platelet Volume 8.8 fL (9.1-12.4); NEUTROPHILS ABSOLUTE AUTO 4.35 K/mm3 (1.96-9.15); NEUTROPHILS PERCENT AUTO 51 % (41-73); Platelet Count 364 K/mm3 (150-400); RDW Coefficient Variation 15.4 % (11.7-14.2); RDW Standard Deviation 46.5 fL (35.1-46.3); Red Blood Cell Count 5.02 M/mm3 (3.80-5.20); White Blood Cell Count 8.47 K/mm3 (4.00-11.30)
[2020-03-07 07:03] LABS: Alanine Aminotransfer (ALT/SGP 43 U/L (12-78); Albumin, Blood 3.1 g/dL (3.4-5.0); Albumin/Globulin Ratio 0.9 (0.8-1.8); Alk Phos 142 U/L (50-136); Anion Gap 5 mmol/L (6-16); Aspartate Aminotrans (AST/SGOT 16 U/L (12-37); Bilirubin, Total 0.2 mg/dL (0.1-1.0); Blood Urea Nitrogen 14 mg/dL (8-24); Bun/Creatinine Ratio 22.1 (12.0-20.0); CO2, Blood 27 mmol/L (21-32); Calcium, Blood 8.6 mg/dL (8.5-10.1); Chloride, Blood 110 mmol/L (98-108); Creatinine, Blood 0.63 mg/dL (0.40-1.00); Globulin, Blood 3.6 g/dL (2.2-4.0); Glomerular Filtration Rate >60 (60-); Glucose, Blood 107 mg/dL (70-99); Potassium, Blood 3.7 mmol/L (3.5-5.5); Sodium, Blood 142 mmol/L (136-145); Total Protein, Blood 6.7 g/dL (6.4-8.2); Troponin I <0.015 ng/mL (0.000-0.040)
[2020-03-07] MEDS ORDERED: AZIT250 PO (08:04)
[2020-03-07] MEDS ORDERED: Prednisone20 MG PO (08:04)
== END 2020-03-07 08:22 | disposition home or self-care (01) ==
LOC: ER 06:19
PROVIDERS: Emergency Medicine
DX: J44.1 Chronic obstructive pulmonary disease with (acute) exacerbation (principal); I10 Essential (primary) hypertension; D50.9 Iron deficiency anemia, unspecified; E78.5 Hyperlipidemia, unspecified; F17.200 Nicotine dependence, unspecified, uncomplicated; Z88.0 Allergy status to penicillin; Z88.5 Allergy status to narcotic agent; Z91.048 Other nonmedicinal substance allergy status; Z91.09 Other allergy status, other than to drugs and biological substances; Z79.899 Other long term (current) drug therapy
CPT/HCPCS: 36415; 71045; 80053; 83880; 84484; 85025; 93005; 93010; 94644; 99285-25

== ENCOUNTER 2020-07-17 13:25 | Emergency (ER) | payer MEDICARE ==
[~2020-07-17] VITALS: Ht 170.2 cm; Wt 68.0 kg
[~2020-07-17 13:25] MED LIST changes: -BUDE.25 NEB; -Duoneb 2.5-0.5 M3 ML INH; +LORAZEPAM0.5 MG PO; +MIRT30 PO; +Pulmicort1 MG/2 ML INH
[2020-07-17] MEDS ORDERED: IPRAT-ALBUT 0.5-3 ML NEB (13:54)
[2020-07-17] MEDS ORDERED: LOSA50 PO (13:54)
[2020-07-17 13:55] LABS: BASOPHILS ABSOLUTE AUTO 0.07 K/mm3 (0.00-0.23); BASOPHILS PERCENT AUTO 1 % (0-2); EOSINOPHILS ABSOLUTE AUTO 1.07 K/mm3 (0.00-0.68); EOSINOPHILS PERCENT AUTO 15 % (0-6); Hematocrit 36.1 % (33.0-51.0); IMMATURE GRAN ABSOLUTE AUTO 0.03 K/mm3 (0.00-0.10); IMMATURE GRAN PERCENT AUTO 0 % (0-1); LYMPHOCYTES ABSOLUTE AUTO 1.04 K/mm3 (0.84-5.20); LYMPHOCYTES PERCENT AUTO 14 % (21-46); MONOCYTES ABSOLUTE AUTO 0.64 K/mm3 (0.16-1.47); MONOCYTES PERCENT AUTO 9 % (4-13); Mean Corpuscular HGB 20.4 pg (26.0-34.0); Mean Corpuscular HGB Conc 27.7 g/dL (31.5-36.5); Mean Corpuscular Volume 74 fL (80-100); Mean Platelet Volume 8.7 fL (9.1-12.4); NEUTROPHILS ABSOLUTE AUTO 4.53 K/mm3 (1.96-9.15); NEUTROPHILS PERCENT AUTO 61 % (41-73); Platelet Count 558 K/mm3 (150-400); RDW Coefficient Variation 16.8 % (11.7-14.2); RDW Standard Deviation 43.9 fL (35.1-46.3); Red Blood Cell Count 4.91 M/mm3 (3.80-5.20); White Blood Cell Count 7.38 K/mm3 (4.00-11.30)
[2020-07-17] MEDS ORDERED: VERA120 PO ×2 (14:35)
[2020-07-17 14:37] LABS: Alanine Aminotransfer (ALT/SGP 25 U/L (12-78); Albumin, Blood 3.5 g/dL (3.4-5.0); Albumin/Globulin Ratio 0.9 (0.8-1.8); Alk Phos 153 U/L (50-136); Anion Gap 7 mmol/L (6-16); Aspartate Aminotrans (AST/SGOT 12 U/L (12-37); Bilirubin, Total 0.3 mg/dL (0.1-1.0); Blood Urea Nitrogen 15 mg/dL (8-24); Bun/Creatinine Ratio 19.9 (12.0-20.0); CO2, Blood 25 mmol/L (21-32); Calcium, Blood 9.1 mg/dL (8.5-10.1); Chloride, Blood 112 mmol/L (98-108); Creatinine, Blood 0.75 mg/dL (0.40-1.00); Globulin, Blood 3.9 g/dL (2.2-4.0); Glomerular Filtration Rate >60 (60-); Glucose, Blood 85 mg/dL (70-99); Potassium, Blood 4.2 mmol/L (3.5-5.5); Sodium, Blood 144 mmol/L (136-145); Total Protein, Blood 7.4 g/dL (6.4-8.2); Troponin I <0.015 ng/mL (0.000-0.040)
[2020-07-17] MEDS ORDERED: FLUT1DIS8 INH (16:09)
[2020-07-17 16:47] LABS: U Amphetamine Screen Not Detected; U Barbituate Screen Not Detected; U Benzodiazapine Screen DETECTED; U Buprenorphine Screen Not Detected; U Cannabinoids Screen Not Detected; U Cocaine Screen Not Detected; U Methadone Screen Not Detected; U Methamphetamine Screen Not Detected; U Opiates Screen Not Detected; U Oxycodone Screen Not Detected; U Phencyclidine Screen Not Detected; U Propoxyphene Screen Not Detected
== END 2020-07-17 16:20 | disposition home or self-care (01) ==
LOC: ER 13:25
PROVIDERS: Emergency Medicine
DX: J98.01 Acute bronchospasm (principal); F41.9 Anxiety disorder, unspecified; I10 Essential (primary) hypertension; J44.9 Chronic obstructive pulmonary disease, unspecified; F41.0 Panic disorder [episodic paroxysmal anxiety]; E78.5 Hyperlipidemia, unspecified; K21.9 Gastro-esophageal reflux disease without esophagitis; F17.210 Nicotine dependence, cigarettes, uncomplicated; Z88.0 Allergy status to penicillin; Z88.5 Allergy status to narcotic agent; Z91.09 Other allergy status, other than to drugs and biological substances; Z91.041 Radiographic dye allergy status; Z79.899 Other long term (current) drug therapy
CPT/HCPCS: 36415; 71045; 80053; 83880; 84484; 85025; 93005; 93010; 94640; 96374; 96375; 99284-25; J2060; J2930

== ENCOUNTER 2020-09-01 17:29 | Observation (INO) | payer MEDICARE ==
[~2020-09-01] VITALS: Ht 170.2 cm; Wt 68.6 kg
[~2020-09-01 17:29] MED LIST changes: +IPRAT-ALBUT 0.5-3 ML NEB; +VERA120 PO
[2020-09-01 18:15] LABS: BASOPHILS ABSOLUTE AUTO 0.09 K/mm3 (0.00-0.23); BASOPHILS PERCENT AUTO 1 % (0-2); EOSINOPHILS ABSOLUTE AUTO 0.65 K/mm3 (0.00-0.68); EOSINOPHILS PERCENT AUTO 7 % (0-6); Hematocrit 25.6 % (33.0-51.0); Hemoglobin 6.6 g/dL (11.5-16.0); IMMATURE GRAN ABSOLUTE AUTO 0.04 K/mm3 (0.00-0.10); IMMATURE GRAN PERCENT AUTO 0 % (0-1); LYMPHOCYTES ABSOLUTE AUTO 1.35 K/mm3 (0.84-5.20); LYMPHOCYTES PERCENT AUTO 14 % (21-46); MONOCYTES ABSOLUTE AUTO 0.68 K/mm3 (0.16-1.47); MONOCYTES PERCENT AUTO 7 % (4-13); Mean Corpuscular HGB 17.7 pg (26.0-34.0); Mean Corpuscular HGB Conc 25.8 g/dL (31.5-36.5); Mean Corpuscular Volume 69 fL (80-100); NEUTROPHILS PERCENT AUTO 72 % (41-73); Platelet Count 464 K/mm3 (150-400); RDW Coefficient Variation 17.8 % (11.7-14.2); Red Blood Cell Count 3.73 M/mm3 (3.80-5.20); White Blood Cell Count 9.91 K/mm3 (4.00-11.30)
[2020-09-01 18:37] LABS: International Normalized Ratio 0.96; Prothrombin Time Results 10.3 Sec (9.7-11.5)
[2020-09-01 18:40] LABS: Alanine Aminotransfer (ALT/SGP 21 U/L (12-78); Albumin, Blood 3.4 g/dL (3.4-5.0); Alk Phos 128 U/L (50-136); Anion Gap 8 mmol/L (6-16); Aspartate Aminotrans (AST/SGOT 15 U/L (12-37); Bilirubin, Total 0.4 mg/dL (0.1-1.0); Blood Urea Nitrogen 21 mg/dL (8-24); Bun/Creatinine Ratio 29.5 (12.0-20.0); CO2, Blood 22 mmol/L (21-32); Calcium, Blood 8.8 mg/dL (8.5-10.1); Chloride, Blood 108 mmol/L (98-108); Creatinine, Blood 0.71 mg/dL (0.40-1.00); Globulin, Blood 3.3 g/dL (2.2-4.0); Glomerular Filtration Rate >60 (60-); Glucose, Blood 97 mg/dL (70-99); Sodium, Blood 138 mmol/L (136-145); Total Protein, Blood 6.7 g/dL (6.4-8.2)
[2020-09-01] MEDS ORDERED: LORAZEPAM0.5 MG PO (19:42)
--- NOTE | 2020-09-02 03:42 | NUR ---
MANUFACTURING ANALYST SUMMARY A/OX4, SBA TO BATHROOM. PT RECIEVED 2 UNITS OF PRBC'S WELL IRON SUPPLEMENT. TOLERATED WELL. CURRENTLY ON CLEAR LIQUID DIET PER PROVIDERS ORDERS, WELDING TESTER PHYSICIAN NOTIFIED AND WOULD LIKE PT TO REMAIN WITH THAT DIET IN CASE THE NEED FOR SCOPE TODAY. PT IRRITATED WITH THIS DECISION BUT IS COOPERATIVE WITH CURRENT PLAN. VSS, NO ACUTE CHANGES NOTED. BED IN LOWEST POSITION WITH CALL LIGHT IN REACH. WILL CONTINUE TO MONITOR AND REPORT TO ONCOMING RN.
[2020-09-02 04:57] LABS: BASOPHILS ABSOLUTE AUTO 0.06 K/mm3 (0.00-0.23); BASOPHILS PERCENT AUTO 1 % (0-2); EOSINOPHILS ABSOLUTE AUTO 0.81 K/mm3 (0.00-0.68); EOSINOPHILS PERCENT AUTO 11 % (0-6); Hematocrit 28.1 % (33.0-51.0); Hemoglobin 7.9 g/dL (11.5-16.0); IMMATURE GRAN ABSOLUTE AUTO 0.04 K/mm3 (0.00-0.10); IMMATURE GRAN PERCENT AUTO 1 % (0-1); LYMPHOCYTES PERCENT AUTO 17 % (21-46); MONOCYTES ABSOLUTE AUTO 0.79 K/mm3 (0.16-1.47); MONOCYTES PERCENT AUTO 10 % (4-13); Mean Corpuscular HGB 19.8 pg (26.0-34.0); Mean Corpuscular HGB Conc 28.1 g/dL (31.5-36.5); Mean Corpuscular Volume 71 fL (80-100); Mean Platelet Volume 8.9 fL (9.1-12.4); NEUTROPHILS ABSOLUTE AUTO 4.59 K/mm3 (1.96-9.15); NEUTROPHILS PERCENT AUTO 61 % (41-73); NRBC ABSOLUTE 0.02 K/mm3 (0.00-0.02); NRBC Auto 0.3 /100 WBC (0.0-0.2); Platelet Count 382 K/mm3 (150-400); RDW Coefficient Variation 20.9 % (11.7-14.2); RDW Standard Deviation 52.4 fL (35.1-46.3); Red Blood Cell Count 3.98 M/mm3 (3.80-5.20); White Blood Cell Count 7.59 K/mm3 (4.00-11.30)
[2020-09-02 05:13] LABS: Anion Gap 6 mmol/L (6-16); Blood Urea Nitrogen 15 mg/dL (8-24); Bun/Creatinine Ratio 21.7 (12.0-20.0); CO2, Blood 26 mmol/L (21-32); Calcium, Blood 8.5 mg/dL (8.5-10.1); Chloride, Blood 108 mmol/L (98-108); Creatinine, Blood 0.69 mg/dL (0.40-1.00); Glomerular Filtration Rate >60 (60-); Glucose, Blood 91 mg/dL (70-99); Potassium, Blood 3.9 mmol/L (3.5-5.5); Sodium, Blood 140 mmol/L (136-145)
[2020-09-02] MEDS ORDERED: FLUTICASONE-SA1 EAC2 INH (09:58)
[2020-09-02] MEDS ORDERED: ASCO500 PO (09:58)
[2020-09-02] MEDS ORDERED: FERSU300 PO (09:59)
[2020-09-02] MEDS ORDERED: DOCU100 PO (10:34)
[2020-09-02] MEDS ORDERED: SENN187 PO (10:35)
--- NOTE | 2020-09-02 11:35 | NUR ---
PATIENT D/C'D TO HOME. RX MEDICATIONS FAXED TO PHARMACY. DC INSTRUCTIONS AND EDUCATION DISCUSSED WITH PATIENT AND COPY PROVIDED. PATIENT HAS F/U APPT NEXT WEEK WITH PCP AND DR. DUTTON'S OFFICE WILL CALL HER WITH APPT TIME. PATIENT DENIES ANY FURTHER QUESTIONS OR CONCERNS.
== END 2020-09-02 11:34 | disposition home or self-care (01) ==
LOC: ER 17:29 → MEDS 17:30
PROVIDERS: Physician Assistant; ADMIT Internal Medicine
PROC: 30233N1 Transfusion of Nonautologous Red Blood Cells into Peripheral Vein, Percutaneous Approach (ICD-10-PCS; principal; 2020-09-01)
DX: D50.9 Iron deficiency anemia, unspecified (principal); J44.9 Chronic obstructive pulmonary disease, unspecified; I10 Essential (primary) hypertension; F41.0 Panic disorder [episodic paroxysmal anxiety]; F41.1 Generalized anxiety disorder; E78.5 Hyperlipidemia, unspecified; K21.9 Gastro-esophageal reflux disease without esophagitis; F17.200 Nicotine dependence, unspecified, uncomplicated; Z79.51 Long term (current) use of inhaled steroids; Z79.899 Other long term (current) drug therapy; Z88.0 Allergy status to penicillin; Z88.5 Allergy status to narcotic agent; Z91.041 Radiographic dye allergy status; Z91.09 Other allergy status, other than to drugs and biological substances; Z23 Encounter for immunization; Z20.828 Contact with and (suspected) exposure to other viral communicable diseases
CPT/HCPCS: 36415; 36430; 80048; 80053; 85025; 85610; 86850; 86900; 86901; 86923; 94640; 96374; 96375; 96376; 99284-25; A9270-GY; G0008; G0378; J1940; J2916; J7030; P9016; Q2038

== ENCOUNTER 2020-09-21 16:05 | Inpatient (IN) | payer MEDICARE ==
[~2020-09-21] VITALS: Ht 170.2 cm; Wt 64.8 kg
[~2020-09-21 16:05] MED LIST changes: +ASCO500 PO; +DOCU100 PO; +FERSU300 PO; +FLUTICASONE-SA1 EAC2 INH; +SENN187 PO
[2020-09-21 17:00] LABS: BASOPHILS ABSOLUTE AUTO 0.08 K/mm3 (0.00-0.23); BASOPHILS PERCENT AUTO 1 % (0-2); EOSINOPHILS ABSOLUTE AUTO 1.23 K/mm3 (0.00-0.68); EOSINOPHILS PERCENT AUTO 8 % (0-6); Hemoglobin 10.3 g/dL (11.5-16.0); IMMATURE GRAN ABSOLUTE AUTO 0.06 K/mm3 (0.00-0.10); IMMATURE GRAN PERCENT AUTO 0 % (0-1); LYMPHOCYTES ABSOLUTE AUTO 1.22 K/mm3 (0.84-5.20); LYMPHOCYTES PERCENT AUTO 8 % (21-46); MONOCYTES ABSOLUTE AUTO 0.92 K/mm3 (0.16-1.47); MONOCYTES PERCENT AUTO 6 % (4-13); Mean Corpuscular HGB 20.6 pg (26.0-34.0); Mean Corpuscular HGB Conc 27.8 g/dL (31.5-36.5); Mean Corpuscular Volume 74 fL (80-100); Mean Platelet Volume 8.7 fL (9.1-12.4); NEUTROPHILS ABSOLUTE AUTO 12.05 K/mm3 (1.96-9.15); NEUTROPHILS PERCENT AUTO 78 % (41-73); Platelet Count 581 K/mm3 (150-400); RDW Standard Deviation 60.5 fL (35.1-46.3); Red Blood Cell Count 5.01 M/mm3 (3.80-5.20); White Blood Cell Count 15.56 K/mm3 (4.00-11.30)
[2020-09-21 17:18] LABS: Alanine Aminotransfer (ALT/SGP 17 U/L (12-78); Albumin, Blood 3.4 g/dL (3.4-5.0); Albumin/Globulin Ratio 0.9 (0.8-1.8); Alk Phos 134 U/L (50-136); Aspartate Aminotrans (AST/SGOT 23 U/L (12-37); Bilirubin, Total 0.3 mg/dL (0.1-1.0); Blood Urea Nitrogen 19 mg/dL (8-24); Bun/Creatinine Ratio 28.3 (12.0-20.0); CO2, Blood 23 mmol/L (21-32); Creatinine, Blood 0.67 mg/dL (0.40-1.00); Globulin, Blood 3.7 g/dL (2.2-4.0); Glomerular Filtration Rate >60 (60-); Glucose, Blood 99 mg/dL (70-99); Total Protein, Blood 7.1 g/dL (6.4-8.2); Troponin I <0.015 ng/mL (0.000-0.040)
[2020-09-21 17:29] LABS: Anion Gap 8 mmol/L (6-16); Chloride, Blood 108 mmol/L (98-108); Sodium, Blood 139 mmol/L (136-145)
[2020-09-21 21:01] LABS: Base Excess Venous -0.6 mmol/L; Bicarbonate Venous 23.8 mmol/L (24.0-30.0)
[2020-09-21 21:10] LABS: Influenza A, PCR Negative (NEGATIVE); Influenza B, PCR Negative (NEGATIVE); Resp Syncytial Virus, PCR Negative (NEGATIVE); SARS-Cov-2 (COVID-19) PCR, MMC Negative (NEGATIVE)
--- NOTE | 2020-09-21 22:02 | NUR ---
transfer report from PARMINDER Reid on PT with COPD, covid neg neg resp panel SOB put on BIPAP in ER, being adnitted obs status. Await admission.
--- NOTE | 2020-09-22 02:46 | NUR ---
59 year old Female with COPD who says she quit smoking 8 days ago has acute SOB & was covid 19 neg in ER. She has hacking dry cough & requiring BIPAP or NC to aide with breathing. She was started on iv steroids Q 6 hours & nebs Q 4 hrsper RT. Up to bathroom x1 void. urine yellow sl cloudy. Dripples urine with cough, pad provided. Medicated for panic attack with 1 mg IV ativan with helpful effect. PT was hospitalized overnight Aug 31 Sep 01 with anemia requiring 2 units PRBC. She states she has had cough x 1 week. Currently resting after ativan for acute anxiety with bipap with 2 l bled in .
[2020-09-22 05:39] LABS: BASOPHILS ABSOLUTE AUTO 0.04 K/mm3 (0.00-0.23); BASOPHILS PERCENT AUTO 0 % (0-2); EOSINOPHILS ABSOLUTE AUTO 0.01 K/mm3 (0.00-0.68); EOSINOPHILS PERCENT AUTO 0 % (0-6); Hematocrit 33.7 % (33.0-51.0); Hemoglobin 9.5 g/dL (11.5-16.0); IMMATURE GRAN ABSOLUTE AUTO 0.16 K/mm3 (0.00-0.10); IMMATURE GRAN PERCENT AUTO 1 % (0-1); LYMPHOCYTES ABSOLUTE AUTO 0.42 K/mm3 (0.84-5.20); LYMPHOCYTES PERCENT AUTO 2 % (21-46); MONOCYTES ABSOLUTE AUTO 0.07 K/mm3 (0.16-1.47); MONOCYTES PERCENT AUTO 0 % (4-13); Mean Corpuscular HGB 20.7 pg (26.0-34.0); Mean Corpuscular HGB Conc 28.2 g/dL (31.5-36.5); Mean Corpuscular Volume 74 fL (80-100); Mean Platelet Volume 8.7 fL (9.1-12.4); NEUTROPHILS ABSOLUTE AUTO 19.65 K/mm3 (1.96-9.15); NEUTROPHILS PERCENT AUTO 97 % (41-73); Platelet Count 476 K/mm3 (150-400); RDW Coefficient Variation 22.9 % (11.7-14.2); RDW Standard Deviation 59.7 fL (35.1-46.3); Red Blood Cell Count 4.58 M/mm3 (3.80-5.20); White Blood Cell Count 20.35 K/mm3 (4.00-11.30)
[2020-09-22 06:11] LABS: Anion Gap 8 mmol/L (6-16); Blood Urea Nitrogen 21 mg/dL (8-24); Bun/Creatinine Ratio 32.3 (12.0-20.0); CO2, Blood 25 mmol/L (21-32); Calcium, Blood 8.9 mg/dL (8.5-10.1); Chloride, Blood 106 mmol/L (98-108); Creatinine, Blood 0.65 mg/dL (0.40-1.00); Glomerular Filtration Rate >60 (60-); Glucose, Blood 139 mg/dL (70-99); Potassium, Blood 4.6 mmol/L (3.5-5.5); Sodium, Blood 139 mmol/L (136-145); Troponin I <0.015 ng/mL (0.000-0.040)
--- NOTE | 2020-09-22 10:12 | NUR ---
AT 0920 PATIENT REPORTS CHEST PAIN 5/10, RADIATING UP LEFT NECK. STATES IT'S TIGHT AND THAT SHE HAS IT AT HOME WITH ANXIETY. PATIENT REPORTS ANXIETY AT TIME OF CHEST PAIN, AND STATES SHE FEELS IT IS RELATED. HOSPITAL RESIDENT AT BEDSIDE, DR. YANEZ ALSO PRESENT. EKG COMPLETE. TROP DRAWN. NITRO GIVEN. BP 98/70 POST NITRO, PATIENT ALERT. HR 114. CHEST PAIN NOW 3/10. BP 115/72 @ 1019.
--- NOTE | 2020-09-22 19:00 | NUR ---
ASSUMED CARE RECEIVED REPORT FROM PARMINDER STANLEY. ASSUMED CARE OF PT. RESTING COMFORTABLY, NO S/S ACUTE DISTRESS NOTED, RESPS E/U. O2 SATS STABLE ON 3L/NC, CONT. PULSE OX IN PLACE. DENIES PAIN OR NEEDS. CALL LIGHT, POSSESSIONS IN REACH, BED IN LOW POSITION, WCTM.
--- NOTE | 2020-09-23 07:01 | NUR ---
ASSUMED CARE: PT RESTING QUIETLY, CPAP IN PLACE. NO ACUTE NEEDS OR CONCERNS AT THIS TIME.
--- NOTE | 2020-09-23 07:16 | NUR ---
SHIFT SUMMARY PT LAYING IN BED QUIETLY, REQUESTING TO HAVE CPAP REMOVED. O2 SATS STABLE; ON 3L/NC. PT REPORTS BREATHING IS IMPROVING AFTER TX PER RT AND ADMINISTRATION OF IV STEROIDS PER EMAR. DENIES SOB AT THIS POINT; HACKING COUGH CONTINUES. VS REVIEWED, WNL. DENIES FURTHER DISCOMFORT AT THIS TIME. CALL LIGHT, POSSESSIONS IN REACH, BED IN LOW POSITION. REPORT GIVEN TO PARMINDER BUTLER.
[2020-09-23 08:29] LABS: BASOPHILS ABSOLUTE AUTO 0.03 K/mm3 (0.00-0.23); BASOPHILS PERCENT AUTO 0 % (0-2); EOSINOPHILS PERCENT AUTO 0 % (0-6); Hematocrit 32.6 % (33.0-51.0); Hemoglobin 9.3 g/dL (11.5-16.0); IMMATURE GRAN ABSOLUTE AUTO 0.24 K/mm3 (0.00-0.10); IMMATURE GRAN PERCENT AUTO 1 % (0-1); LYMPHOCYTES ABSOLUTE AUTO 0.59 K/mm3 (0.84-5.20); LYMPHOCYTES PERCENT AUTO 2 % (21-46); MONOCYTES ABSOLUTE AUTO 0.37 K/mm3 (0.16-1.47); MONOCYTES PERCENT AUTO 1 % (4-13); Mean Corpuscular HGB 20.8 pg (26.0-34.0); Mean Corpuscular HGB Conc 28.5 g/dL (31.5-36.5); Mean Corpuscular Volume 73 fL (80-100); Mean Platelet Volume 8.9 fL (9.1-12.4); NEUTROPHILS PERCENT AUTO 95 % (41-73); Platelet Count 500 K/mm3 (150-400); RDW Coefficient Variation 23.1 % (11.7-14.2); RDW Standard Deviation 59.5 fL (35.1-46.3); Red Blood Cell Count 4.48 M/mm3 (3.80-5.20); White Blood Cell Count 25.93 K/mm3 (4.00-11.30)
[2020-09-23 08:45] LABS: Anion Gap 7 mmol/L (6-16); Blood Urea Nitrogen 33 mg/dL (8-24); Bun/Creatinine Ratio 43.2 (12.0-20.0); CO2, Blood 26 mmol/L (21-32); Calcium, Blood 8.9 mg/dL (8.5-10.1); Chloride, Blood 105 mmol/L (98-108); Creatinine, Blood 0.76 mg/dL (0.40-1.00); Glomerular Filtration Rate >60 (60-); Glucose, Blood 132 mg/dL (70-99); Potassium, Blood 4.5 mmol/L (3.5-5.5); Sodium, Blood 138 mmol/L (136-145)
--- NOTE | 2020-09-23 16:30 | NUR ---
PT CALLED, ASKING ABOUT CT SCAN THAT SHE STATED SAID THERE WERE GOING TO ORDER. CALL TO DR URBINA WHO STATED NO CT SCAN AND THAT XRAY DID NOT JAY ANY CARDIAC ABNORMALITY. ORDERED GUAIFENESIN FOR COUGH. PT AWARE
--- NOTE | 2020-09-23 17:35 | NUR ---
PT CALLED AND ASKED IF HER COULD STAY THE NIGHT. REMINDED HER OF VISITATION POLICY TO WHICH SHE STARTED HYPERVENTILATING AND SAYING SHE WANTED TO SIGN HERSELF OUT. MANAGEMENT ENGINEER CALLED TO ROOM AND TOLD PT SHE COULD LET STAY UNTIL 7PM SINCE HE'S COMING FROM [place] AND LATE. OFFERED ATIVAN AND PT BEGAN TO CALM. PLAN IS FOR DC IN NEXT DAY OR SO AFTER TRANSITIONING TO [facility].
--- NOTE | 2020-09-23 19:00 | NUR ---
ASSUMED CARE RECEIVED REPORT FROM PARMINDER BUTLER. PT IN RECLINER, HEADING HOME FOR THE EVENING. PT ASKING TO GET IN TO SHOWER, DISCONNECTED FROM CONT. PULSE OX. APPEARS SLIGHTLY ANXIOUS, COOPERATIVE WITH CARES. IV WRAPPED. DENIES FURTHER NEEDS AT THIS TIME. CALL LIGHT, POSSESSIONS IN REACH, CONTINUE TO MONITOR.
--- NOTE | 2020-09-24 04:18 | NUR ---
SHIFT SUMMARY PT ASLEEP, NO ACUTE NEEDS NOTED AT THIS TIME. HAS BEEN MONITORED EVERY 1-2 HOURS WITH NEEDS MET. PT HAS PERIODS OF INCREASING ANXIETY AT TIMES; MANAGED WELL C MEDS PER EMAR, DISTRACTION/DIVERSION. SHOWER DONE AT BEGINNING OF SHIFT, PT STATED SHE FELT BETTER AFTERWARD. VS REVIEWED, WNL. O2 SATS STABLE ON 2L/NC, REFUSED CPAP. APPEARS COMFORTABLE. CALL LIGHT, POSSESSIONS IN REACH, BED IN LOW POSITION. CONTINUE TO MONITOR UNTIL REPORT GIVEN TO DAY RN.
[2020-09-24 04:28] LABS: BASOPHILS ABSOLUTE AUTO 0.02 K/mm3 (0.00-0.23); BASOPHILS PERCENT AUTO 0 % (0-2); EOSINOPHILS PERCENT AUTO 0 % (0-6); Hematocrit 29.2 % (33.0-51.0); Hemoglobin 8.3 g/dL (11.5-16.0); IMMATURE GRAN PERCENT AUTO 1 % (0-1); LYMPHOCYTES ABSOLUTE AUTO 0.58 K/mm3 (0.84-5.20); LYMPHOCYTES PERCENT AUTO 3 % (21-46); MONOCYTES PERCENT AUTO 1 % (4-13); Mean Corpuscular HGB 20.9 pg (26.0-34.0); Mean Corpuscular HGB Conc 28.4 g/dL (31.5-36.5); Mean Corpuscular Volume 73 fL (80-100); Mean Platelet Volume 9.1 fL (9.1-12.4); NEUTROPHILS ABSOLUTE AUTO 20.27 K/mm3 (1.96-9.15); NEUTROPHILS PERCENT AUTO 95 % (41-73); Platelet Count 461 K/mm3 (150-400); RDW Coefficient Variation 22.8 % (11.7-14.2); RDW Standard Deviation 59.9 fL (35.1-46.3); Red Blood Cell Count 3.98 M/mm3 (3.80-5.20); White Blood Cell Count 21.37 K/mm3 (4.00-11.30)
[2020-09-24 04:53] LABS: Anion Gap 6 mmol/L (6-16); Blood Urea Nitrogen 37 mg/dL (8-24); Bun/Creatinine Ratio 50.8 (12.0-20.0); CO2, Blood 26 mmol/L (21-32); Calcium, Blood 8.6 mg/dL (8.5-10.1); Chloride, Blood 107 mmol/L (98-108); Creatinine, Blood 0.73 mg/dL (0.40-1.00); Glomerular Filtration Rate >60 (60-); Glucose, Blood 134 mg/dL (70-99); Potassium, Blood 4.5 mmol/L (3.5-5.5); Sodium, Blood 139 mmol/L (136-145)
--- NOTE | 2020-09-24 15:16 | NUR ---
PT DISCHARGED VIA WHEELCHAIR WITH FAMILY AND BELONGINGS AT SIDE. PT MADE NO COMPLAINTS OF SOB AT THE TIME OF DISCHARGE AND WAS EDUCATED ON FU APPOINTMENTS AND MEDICATION ADMIN. PT IV DC'D AND WNL.
== END 2020-09-24 14:35 | disposition home or self-care (01) | DRG 189 ==
LOC: ER 16:05 → MEDS 17:05 → ENPENDDIS 09-24 14:16 → MEDS 09-24 14:35
PROVIDERS: Family Medicine; Physician Assistant; ADMIT Family Medicine
DX: J96.01 Acute respiratory failure with hypoxia (principal); J44.1 Chronic obstructive pulmonary disease with (acute) exacerbation; R65.10 Systemic inflammatory response syndrome (SIRS) of non-infectious origin without acute organ dysfunction; I10 Essential (primary) hypertension; F17.210 Nicotine dependence, cigarettes, uncomplicated; Z20.828 Contact with and (suspected) exposure to other viral communicable diseases; D47.3 Essential (hemorrhagic) thrombocythemia; D50.9 Iron deficiency anemia, unspecified; R00.0 Tachycardia, unspecified; E78.5 Hyperlipidemia, unspecified; F41.9 Anxiety disorder, unspecified
CPT/HCPCS: 0241U; 36415; 71046; 80048; 80053; 82803; 83880; 84145; 84484; 85025; 86850; 86900; 86901; 93005; 93010; 94640; 94644; 94660; 94664; 94667; 94762; 96374; 98960; 99285-25; 99406; A9270; A9270-GY; J1650; J2060; J2930

== ENCOUNTER 2021-07-27 14:15 | Emergency (ER) | payer MEDICARE ==
[~2021-07-27] VITALS: Ht 170.2 cm; Wt 68.0 kg
[2021-07-27] MEDS ORDERED: LOSA50 PO ×2 (14:29→14:30)
[2021-07-27 14:56] LABS: BASOPHILS ABSOLUTE AUTO 0.06 K/mm3 (0.00-0.23); BASOPHILS PERCENT AUTO 1 % (0-2); EOSINOPHILS ABSOLUTE AUTO 1.02 K/mm3 (0.00-0.68); EOSINOPHILS PERCENT AUTO 9 % (0-6); Hematocrit 26.6 % (33.0-51.0); Hemoglobin 6.7 g/dL (11.5-16.0); IMMATURE GRAN ABSOLUTE AUTO 0.05 K/mm3 (0.00-0.10); IMMATURE GRAN PERCENT AUTO 0 % (0-1); LYMPHOCYTES ABSOLUTE AUTO 0.88 K/mm3 (0.84-5.20); LYMPHOCYTES PERCENT AUTO 8 % (21-46); MONOCYTES ABSOLUTE AUTO 0.74 K/mm3 (0.16-1.47); MONOCYTES PERCENT AUTO 7 % (4-13); Mean Corpuscular HGB 16.2 pg (26.0-34.0); Mean Corpuscular HGB Conc 25.2 g/dL (31.5-36.5); Mean Corpuscular Volume 64 fL (80-100); Mean Platelet Volume 8.8 fL (9.1-12.4); NEUTROPHILS ABSOLUTE AUTO 8.46 K/mm3 (1.96-9.15); NEUTROPHILS PERCENT AUTO 76 % (41-73); Platelet Count 409 K/mm3 (150-400); RDW Coefficient Variation 19.2 % (11.7-14.2); RDW Standard Deviation 43.8 fL (35.1-46.3); Red Blood Cell Count 4.13 M/mm3 (3.80-5.20); White Blood Cell Count 11.21 K/mm3 (4.00-11.30)
[2021-07-27 15:20] LABS: Alanine Aminotransfer (ALT/SGP 30 U/L (12-78); Albumin, Blood 3.1 g/dL (3.4-5.0); Albumin/Globulin Ratio 0.9 (0.8-1.8); Alk Phos 120 U/L (50-136); Anion Gap 4 mmol/L (6-16); Aspartate Aminotrans (AST/SGOT 23 U/L (12-37); Bilirubin, Total 0.4 mg/dL (0.1-1.0); Blood Urea Nitrogen 17 mg/dL (8-24); Bun/Creatinine Ratio 25.4 (12.0-20.0); CO2, Blood 28 mmol/L (21-32); Calcium, Blood 8.5 mg/dL (8.5-10.1); Chloride, Blood 109 mmol/L (98-108); Creatinine, Blood 0.67 mg/dL (0.40-1.00); Globulin, Blood 3.4 g/dL (2.2-4.0); Glomerular Filtration Rate >60 (60-); Glucose, Blood 104 mg/dL (70-99); Potassium, Blood 4.2 mmol/L (3.5-5.5); Sodium, Blood 141 mmol/L (136-145); Total Protein, Blood 6.5 g/dL (6.4-8.2); Troponin I <0.015 ng/mL (0.000-0.040)
[2021-07-27 15:44] LABS: SARS-Cov-2 (COVID-19) PCR, MMC NEGATIVE (NEGATIVE)
[2021-07-27] MEDS ORDERED: ALBU90OI INH (16:43)
[2021-07-27] MEDS ORDERED: PRED20 PO (16:43)
== END 2021-07-27 20:49 | disposition home or self-care (01) ==
LOC: ER 14:15
PROVIDERS: Emergency Medicine
DX: J44.1 Chronic obstructive pulmonary disease with (acute) exacerbation (principal); D50.9 Iron deficiency anemia, unspecified; Z20.822 Contact with and (suspected) exposure to COVID-19; I10 Essential (primary) hypertension; E78.5 Hyperlipidemia, unspecified; K21.9 Gastro-esophageal reflux disease without esophagitis; F17.200 Nicotine dependence, unspecified, uncomplicated; Z88.0 Allergy status to penicillin; Z88.5 Allergy status to narcotic agent; Z91.048 Other nonmedicinal substance allergy status; Z79.899 Other long term (current) drug therapy
CPT/HCPCS: 36415; 36430; 71045; 80053; 82272; 83880; 84484; 85025; 86850; 86900; 86901; 86923; 93005; 93010; 94640; 96374; 99285-25; J2930; J7030; P9016; U0004

== ENCOUNTER 2021-07-31 23:27 | Emergency (ER) | payer MEDICARE ==
[~2021-07-31] VITALS: Ht 170.2 cm; Wt 68.0 kg
[2021-08-01 00:48] LABS: BASOPHILS ABSOLUTE AUTO 0.04 K/mm3 (0.00-0.23); BASOPHILS PERCENT AUTO 0 % (0-2); EOSINOPHILS PERCENT AUTO 0 % (0-6); Hematocrit 35.3 % (33.0-51.0); IMMATURE GRAN ABSOLUTE AUTO 0.19 K/mm3 (0.00-0.10); IMMATURE GRAN PERCENT AUTO 1 % (0-1); LYMPHOCYTES PERCENT AUTO 6 % (21-46); MONOCYTES ABSOLUTE AUTO 1.52 K/mm3 (0.16-1.47); MONOCYTES PERCENT AUTO 7 % (4-13); Mean Corpuscular HGB Conc 28.3 g/dL (31.5-36.5); Mean Corpuscular Volume 67 fL (80-100); NEUTROPHILS ABSOLUTE AUTO 19.44 K/mm3 (1.96-9.15); NEUTROPHILS PERCENT AUTO 86 % (41-73); RDW Coefficient Variation 27.1 % (11.7-14.2); RDW Standard Deviation 62.3 fL (35.1-46.3); Red Blood Cell Count 5.27 M/mm3 (3.80-5.20); White Blood Cell Count 22.49 K/mm3 (4.00-11.30)
[2021-08-01 00:56] LABS: Mean Platelet Volume 8.5 fL (9.1-12.4); Platelet Count 371 K/mm3 (150-400)
[2021-08-01 01:01] LABS: Alanine Aminotransfer (ALT/SGP 50 U/L (12-78); Albumin, Blood 3.3 g/dL (3.4-5.0); Albumin/Globulin Ratio 0.9 (0.8-1.8); Alk Phos 131 U/L (50-136); Anion Gap 8 mmol/L (6-16); Aspartate Aminotrans (AST/SGOT 53 U/L (12-37); Bilirubin, Total 0.7 mg/dL (0.1-1.0); Blood Urea Nitrogen 22 mg/dL (8-24); Bun/Creatinine Ratio 37.5 (12.0-20.0); CO2, Blood 27 mmol/L (21-32); Chloride, Blood 103 mmol/L (98-108); Creatinine, Blood 0.59 mg/dL (0.40-1.00); Ethanol (Alcohol), Blood, Med <3 mg/dL; Globulin, Blood 3.7 g/dL (2.2-4.0); Glomerular Filtration Rate >60 (60-); Glucose, Blood 123 mg/dL (70-99); Potassium, Blood 4.2 mmol/L (3.5-5.5); Sodium, Blood 138 mmol/L (136-145)
[2021-08-01 01:11] LABS: International Normalized Ratio 1.01; Prothrombin Time Results 10.6 Sec (9.7-11.5)
[2021-08-01 02:09] LABS: Source, Urine Clean Catch
[2021-08-01 02:14] LABS: Bilirubin, Urine Neg (Neg); Blood, Urine 4+ (Neg); Glucose Qualitative, Urine Neg (Neg); Ketones, Urine Neg (Neg); Leukocyte Esterase, Urine 2+ (Neg); Nitrite, Urine Neg (Neg); Protein, Urine 2+ (Neg); Urobilinogen, Urine NORM (Normal); pH, Urine 6.5 (5.0-8.0)
[2021-08-01 02:15] LABS: Appearance, Urine Clear (Clear); Color, Urine Yellow (P-Yellow)
[2021-08-01 02:22] LABS: Amorphous Light (0-Heavy); Bacteria Mod /hpf; Mucus Light (0-Heavy); Red Blood Cells, Urine Rare /hpf (0-2); Squamous Epithelial Cells Rare /hpf (Few)
[2021-08-01 03:08] LABS: U Amphetamine Screen DETECTED; U Barbituate Screen Not Detected; U Benzodiazapine Screen Not Detected; U Buprenorphine Screen Not Detected; U Cannabinoids Screen Not Detected; U Cocaine Screen Not Detected; U Methadone Screen Not Detected; U Methamphetamine Screen DETECTED; U Opiates Screen DETECTED; U Oxycodone Screen Not Detected; U Phencyclidine Screen Not Detected; U Propoxyphene Screen Not Detected
== END 2021-08-01 04:28 | disposition home or self-care (01) ==
LOC: ER 23:27
PROVIDERS: Physician Assistant; Student in an Organized Health Care Education/Training Program
DX: K59.00 Constipation, unspecified (principal); R11.2 Nausea with vomiting, unspecified; Z88.0 Allergy status to penicillin; Z88.5 Allergy status to narcotic agent; Z91.048 Other nonmedicinal substance allergy status; Z79.899 Other long term (current) drug therapy; Z79.52 Long term (current) use of systemic steroids; I10 Essential (primary) hypertension; J44.9 Chronic obstructive pulmonary disease, unspecified; E78.5 Hyperlipidemia, unspecified; K21.9 Gastro-esophageal reflux disease without esophagitis; F17.200 Nicotine dependence, unspecified, uncomplicated
CPT/HCPCS: 36415; 74176; 80053; 81001; 83605; 83690; 85025; 85610; 85730; 86850; 86900; 86901; 87086; 93005; 93010; 96374; 96375; 96376; 99284-25; A9270; C9113; G0480; J2270; J2405; J2765; J7030

== ENCOUNTER 2021-08-01 14:33 | Inpatient (IN) | payer MEDICARE ==
[~2021-08-01] VITALS: Ht 170.2 cm; Wt 69.8 kg
[2021-08-01 15:33] LABS: Hemoglobin 10.5 g/dL (11.5-16.0); Mean Corpuscular HGB Conc 26.9 g/dL (31.5-36.5); Mean Corpuscular Volume 71 fL (80-100); Mean Platelet Volume 8.6 fL (9.1-12.4); NRBC ABSOLUTE 0.03 K/mm3 (0.00-0.02); NRBC Auto 0.1 /100 WBC (0.0-0.2); Platelet Count 490 K/mm3 (150-400); RDW Coefficient Variation 27.2 % (11.7-14.2); Red Blood Cell Count 5.52 M/mm3 (3.80-5.20); White Blood Cell Count 44.99 K/mm3 (4.00-11.30)
[2021-08-01 15:59] LABS: BASOPHILS PERCENT MAN 0 % (0-2); EOSINOPHILS PERCENT MAN 0 % (0-6); LYMPHOCYTES ABSOLUTE MAN 0.89 K/mm3 (0.84-5.20); LYMPHOCYTES PERCENT MAN 2 % (21-46); MONOCYTES ABSOLUTE MAN 4.94 K/mm3 (0.16-1.47); MONOCYTES PERCENT MAN 11 % (4-13); NEUTROPHILS ABSOLUTE MAN 39.14 K/mm3 (1.96-9.15); SEG NEUTROPHILS PERCENT MAN 87 % (41-73); TOTAL CELLS COUNTED 100
[2021-08-01 16:04] LABS: Albumin, Blood 3.5 g/dL (3.4-5.0); Albumin/Globulin Ratio 0.9 (0.8-1.8); Bilirubin, Total 1.1 mg/dL (0.1-1.0); Bun/Creatinine Ratio 27.4 (12.0-20.0); Calcium, Blood 9.3 mg/dL (8.5-10.1); Creatinine, Blood 1.13 mg/dL (0.40-1.00); Globulin, Blood 3.9 g/dL (2.2-4.0); Potassium, Blood 4.6 mmol/L (3.5-5.5); Total Protein, Blood 7.4 g/dL (6.4-8.2)
[2021-08-01 18:58] LABS: SARS-Cov-2 (COVID-19) PCR, MMC NEGATIVE (NEGATIVE)
--- NOTE | 2021-08-01 21:30 | NUR ---
ICU ADMISSION: PT ARRIVES ADMIT FROM THE ED. INITIAL COMPLAINT WAS 10/[address] SCAN WAS + FOR ACUTE FINDINGS w/ PNEUMATOSIS OF THE STOMACH, SM BOWEL, w/ EXTENSIVE MESENTERIC & PORTAL VENOUS GAS. NIX CONSULTED & INFORMED FAMILY THE Dx WAS INOPERABLE & D/T THE EXTENT OF THE INFECTION & DEGREE OF BOWEL INVOLVEMENT, THIS IS A TERMINAL Dx. PER NIX, SPOUSE SEEMED RECEPTIVE BUT DID NOT COMPREHEND THAT THE PT WILL FROM THIS. UPON ARRIVAL PT IS INTUBATED; VENT: AC 16/400, 5/50%. NO SEDATION, GCS 3, NO COUGH, SWALLOW, GAG. NO CORNEAL REFLEX, NO WITHDRAWAL FROM PAIN. PUPILS FIXED, 2mm. LS CLEAR, NO ETT SECRETIONS. NGT TO L NARES w/ MAROON, THICK PARTICLE CONTENTS IN SUCTION CANISTER WELL SPILLING OUT OF THE MOUTH. HR 90s, SINUS TACH. SBP 80s, MAPs 50s. LEVOPHED @ 30mcg/min. ABD IS PROFOUNDLY DISTENDED, TYMPANIC w/ PERCUSSION. ARCHER IN PLACE, NO URINE OUTPUT. CLEAR JELLY STOOL FROM RECTUM. MOTTLING NOTED TO HANDS & FEET. EXTREMITIES COOL, CYANOTIC. KASSI CALLED FOR VASOPRESSIN & CRITICAL CARE CONSULT.
--- NOTE | 2021-08-01 23:50 | NUR ---
UPDATE: ADDITIONAL PRESSOR & ART LINE PLACEMENT. KASSI CALLED & UPDATED ON PT's DOWNWARDS TRENDING BP DESPITE MAX DOSE OF LEVOPHED & VASOPRESSIN. MOTTLING HAS PROGRESSED TO THE MID THIGH BILATERALLY. BUE COOL, CYANOTIC. PT IS ALSO HAVING A SIGNIFICANT AMT OF DARK MAROON EMESIS W/ THICK PARTICLES OOZE FROM AROUND THE ETT & OUT OF HER MOUTH. 200ml SUCTIONED. ORDERS RECEIVED TO START EPI gtt. KASSI ARRIVES @ BEDSIDE FOR EVAL & TO PLACE ART LINE. AFTER PLACEMENT, ART BP & CUFF BP ARE NOT CORRELATING, MAPs VIA ART LINE ARE IN THE 40s. EPI gtt NOW @ MAX DOSE.
--- NOTE | 2021-08-02 01:01 | NUR ---
UPDATE: CHULA ROUDNING / FAMILY UPDATED ON PT PROGRESSION CHULA ROUNDING & @ BEDSIDE, UPDATED ON PT's PROGRESSION SINCE ADMISSION TO ICU. DISCUSSED CONCERNS FOR PT's HIGH LIKELIHOOD TO CODE TONIGHT & FAMILY'S SEEMINGLY POOR UNDERSTANDING OF THE SITUATION. CHULA CALLS, CHINMAY, PT'S PARTNER & EXPLAINS CONCERNS & ADVISES HE & FAMILY COME IN. HE STS HE WILL CALL THE SON & MAKE A DECISION FROM THERE.
[2021-08-02 01:28] LABS: Bun/Creatinine Ratio 14.9 (12.0-20.0); Calcium, Blood 7.8 mg/dL (8.5-10.1); Creatinine, Blood 2.08 mg/dL (0.40-1.00)
[2021-08-02 01:33] LABS: Potassium, Blood 8.2 mmol/L (3.5-5.5)
--- NOTE | 2021-08-02 02:00 | NUR ---
UPDATE: CRITICAL K+ & SAHIL CONSULT. CHULA INFORMED OF CRITICAL K+ OF 8.2. NEPHROLOGY CONSULT CALLED BY DR QUIROS. SAHIL TO PLACE ORDERS.
[2021-08-02 02:20] LABS: PCO2 Arterial 49.8 mmHg (35-45); PO2 Arterial 106 mmHg (80-100)
[2021-08-02 02:22] LABS: pH Blood Arterial 6.95 (7.35-7.45)
--- NOTE | 2021-08-02 02:38 | NUR ---
UPDATE: ABG RESULTS ABG RESULTED W/ CRITICAL pH 6.95. BAXTER UPDATED. ORDERS RECEIVED FOR ADDITIONAL 2 amps OF BICARB NOW. PLAN FOR RENAL PANEL W/ AM LABS. RT @ BEDSIDE FOR VENT CHANGES: RR INC TO 25 FOR A GOAL MIN VENT OF 10. BP MUCH IMPROVED AFTER MEDS w/ MAPS 60-70. PT's OVERALL COLOR IMPROVING, THOUGH MOTTLING IS UNCHANGED.
--- NOTE | 2021-08-02 04:00 | NUR ---
UPDATE: FAMILY @ BEDSIDE. PT's SPOUSE & FRIEND ARRIVE @ BEDSIDE. CHAIRS PROVIDED & FAMILY ENCOURAGED TO HOLD THE PT's HAND & SPEAK TO HER. FAMILY IS RECEPTIVE. HOWEVER, WHEN EXPLAINING THE PT's CRITICAL SITUATION, FAMILY RESPONDS w/ DISBELIEF THAT THE PT WAS ABLE TO BECOME SO ILL IN JUST ONE DAY. DESPITE ATTEMPTS TO EXPLAIN THAT THE PT WILL NOT LIKELY LIVE MUCH LONGER, FAMILY CONTINUES TO ENDORSE "SHE IS STRONG AND SHE WON'T LET THIS GET HER DOWN". FAMILY GIVEN PRIVACY & ENCOURAGED TO CALL w/ REQUESTS OR QUESTIONS. CHULA UPDATED ON FAMILY's ARRIVAL.
[2021-08-02 04:11] LABS: Hematocrit 29.1 % (33.0-51.0); Hemoglobin 7.2 g/dL (11.5-16.0); Mean Corpuscular HGB 19.4 pg (26.0-34.0); Mean Corpuscular HGB Conc 24.7 g/dL (31.5-36.5); Mean Platelet Volume 9.4 fL (9.1-12.4); NRBC ABSOLUTE 0.52 K/mm3 (0.00-0.02); NRBC Auto 1.1 /100 WBC (0.0-0.2); Platelet Count 236 K/mm3 (150-400); RDW Coefficient Variation 25.8 % (11.7-14.2); RDW Standard Deviation 70.4 fL (35.1-46.3); Red Blood Cell Count 3.72 M/mm3 (3.80-5.20); White Blood Cell Count 47.19 K/mm3 (4.00-11.30)
[2021-08-02 04:43] LABS: Mean Corpuscular Volume 78 fL (80-100)
[2021-08-02 05:05] LABS: Albumin, Blood 1.9 g/dL (3.4-5.0); Anion Gap 24 mmol/L (6-16); Blood Urea Nitrogen 32 mg/dL (8-24); Bun/Creatinine Ratio 13.1 (12.0-20.0); CO2, Blood 14 mmol/L (21-32); Calcium, Blood 8.1 mg/dL (8.5-10.1); Chloride, Blood 105 mmol/L (98-108); Creatinine, Blood 2.45 mg/dL (0.40-1.00); Glomerular Filtration Rate 20 (60-); Glucose, Blood 128 mg/dL (70-99); Phosphorus, Blood 13.6 mg/dL (2.5-4.9); Sodium, Blood 143 mmol/L (136-145)
[2021-08-02 05:15] LABS: Magnesium, Blood 2.8 mg/dL (1.6-2.4)
[2021-08-02 05:19] LABS: Albumin, Blood 1.9 g/dL (3.4-5.0); Albumin/Globulin Ratio 0.8 (0.8-1.8); Bilirubin, Total 2.2 mg/dL (0.1-1.0); Bun/Creatinine Ratio 13.1 (12.0-20.0); Calcium, Blood 8.2 mg/dL (8.5-10.1); Creatinine, Blood 2.45 mg/dL (0.40-1.00); Globulin, Blood 2.5 g/dL (2.2-4.0)
[2021-08-02 05:36] LABS: Potassium, Blood 5.8 mmol/L (3.5-5.5); Total Protein, Blood 4.4 g/dL (6.4-8.2)
[2021-08-02 05:37] LABS: Potassium, Blood 5.8 mmol/L (3.5-5.5)
--- NOTE | 2021-08-02 05:41 | NUR ---
SAHIL CALLED & UPDATED ON AM LABS w/ CRITICAL PHOS OF 13.6. NO NEW ORDERS GIVEN. FAMILY REMAINS @ BEDSIDE. PT MOVING FINGERS SLIGHTLY, LOC OTHERWISE UNCHANGED. ARTERIAL BP TRENDING DOWNWARDS, MAPs 40s. HR NOW 80s & SPO2 88-90% ON 100% FiO2. REPEAT ABG TO FOLLOW SHORTLY.
[2021-08-02 05:55] LABS: BAND PERCENT MAN 7 % (0-8); BASOPHILS PERCENT MAN 0 % (0-2); EOSINOPHILS PERCENT MAN 0 % (0-6); LYMPHOCYTES ABSOLUTE MAN 5.19 K/mm3 (0.84-5.20); LYMPHOCYTES PERCENT MAN 11 % (21-46); METAMYELOCYTE ABSOLUTE MAN 0.94 K/mm3 (0.00-0.00); METAMYELOCYTE PERCENT MAN 2 % (0-0); MONOCYTES ABSOLUTE MAN 1.41 K/mm3 (0.16-1.47); MONOCYTES PERCENT MAN 3 % (4-13); MYELOCYTE ABSOLUTE MAN 1.41 K/mm3 (0.00-0.00); MYELOCYTE PERCENT MAN 3 % (0-0); NEUTROPHILS ABSOLUTE MAN 38.22 K/mm3 (1.96-9.15); SEG NEUTROPHILS PERCENT MAN 74 % (41-73); TOTAL CELLS COUNTED 100
[2021-08-02 05:59] LABS: PCO2 Arterial 45.5 mmHg (35-45); PO2 Arterial 218 mmHg (80-100)
[2021-08-02 06:02] LABS: pH Blood Arterial 6.99 (7.35-7.45)
--- NOTE | 2021-08-02 06:33 | NUR ---
SHIFT SUMMARY: PT REMAINS INTUBATED. VENT: AC 25/400, 5/100%. MENTATION & LOC UNCHANGED. GCS 3. HR SINUS, low 80s. ARTERIAL BP CONTINUES TO TREND DOWNWARDS, w/MAPs IN THE 40s-50s. MOTTLING PROGRESSING UP TO THE TRUNK, HANDS & FEET CYANOTIC. PERIPHERAL PULSES THREADY. PRESSORS @ MAX DOSE, SEE FLOWSHEET. DR QUIROS AWARE & UPDATED w/ AM LABS. NO NEW ORDERS GIVEN. DR BAXTER ROUNDED THIS AM, ALSO NO NEW ORDERS. FAMILY TO RETURN SHORTLY. PLAN TO DISCUSS CODE STATUS CHANGE & COMFORT MEASURES TODAY. PALLIATIVE CARE MADE AWARE OF PT.
--- NOTE | 2021-08-02 08:30 | NUR ---
ASSUMED CARE BEDSIDE REPORT FROM REBECA ZURITA. PT INTUBATED, VENT SETTINGS AC/VC 20/400/5/75%. LUNGS DECREASED c INSPIRATORY AND EXPIRATORY WHEEZE THROUGHOUT. NO COUGH/GAG/SWALLOW REFLEX. NOT BREATHING OVER VENT. NO SEDATION. PUPILS 3 MM, NON REACTIVE. ABD FIRM, DISTENDED, TYMPANIC. NO BT. OGT TO LIS, MAROON EMESIS OUT. SR ON MONITOR, RATE 80'S. MOTTLING TO BLE TO MID THIGH. CVC TO RSC, VASO, EPI AND LEVO INFUSING, MAX RATE, MAP 45-50. ART LINE TO RIGHT GROIN, ZERO'D. NAHCO3 INFUSING AT 200 ML/HR. ARCHER IN PLACE, NO URINARY OUTPUT. PALLIATIVE CARE CONSULT. MERE CONTACTED FAMILY. FAMILY AT BEDSIDE. WILL CONTINUE TO MONITOR CLOSELY.
--- NOTE | 2021-08-02 09:13 | NUR ---
CODE STATUS CHANGE/DNR SPOUSE, CHINMAY AND ARNALDO AT BEDSIDE. UPDATED BY DR PISANO AND MERE FROM PALLIATIVE CARE. PASTORAL CARE CALLED. CODE STATUS CHANGED TO DNR.
--- NOTE | 2021-08-02 09:26 | NUR ---
Spoke with Pt's Primary RN Susie and reviewed chart. Pt is intubated, not sedated, and maxed out on 3 pressors. Pt's prognosis is poor and family may benefit from discussion regarding code status and goals of care. Called and spoke with Pt's spouse Benny. Benny is in the hospital and will arrive to Pt's room shortly. Briefly discussed code status with Benny reporting he will consider this option. Met with Pt's spouse and Pt's sister at bedside along with Primary RN Susie. Family tearfull with emotional support offered. Answered questions and offered therapeutic listening. Spouse Benny reports Pt wishes are to be DNR. Briefly and gently discussed options of continuing current treatment or withdrawing care and considering comfort care. No response by family at this time. Continued supportive visit. Palliative Care will F/U throughout the day for supportive visits.
--- NOTE | 2021-08-02 11:36 | NUR ---
Spiritual care visit conducted. Benny is bedside with patient. Benny tells me about patient's Jain background and his Lutheran lisa. He requests that Father Oscar visit patient if he is available (I later notify Father Oscar of the request for a Car Coupler and he explains that he will visit patient after Mass, today). I then provide therapeutic listening as Benny tells the history of his life and their intersection 32 yrs ago when they met and of the many advetures they have had together ever since. 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 He also discusses his leaning toward the withdrawal of life support, but still needing a little time to process. I provide emotional/spiritual support, a calming presence, companionship and prayer. Benny voices his appreciation and states that the visit was very encouraging to him. I will continue to remain available to patient and family.
--- NOTE | 2021-08-02 16:37 | NUR ---
CALL PLACED TO AT 1530 TO INFORM OF POSSIBLE DETERIORATION. MESSAGE LEFT. DAUGHTER FROM SURGICAL FLOOR DOWN TO SEE PT. TOD 1547.
== END 2021-08-02 15:47 | DRG 871 ==
LOC: ER 14:33 → ICUE 18:11 → ERHOLD 18:11 → ICUE 21:00
PROVIDERS: Emergency Medicine; Internal Medicine; Internal Medicine Nephrology; Physician Assistant; ADMIT Internal Medicine
PROC: 0BH18EZ Insertion of Endotracheal Airway into Trachea, Via Natural or Artificial Opening Endoscopic (ICD-10-PCS; principal; 2021-08-01)
PROC: 5A1935Z Respiratory Ventilation, Less than 24 Consecutive Hours (ICD-10-PCS; 2021-08-01)
PROC: 03HY32Z Insertion of Monitoring Device into Upper Artery, Percutaneous Approach (ICD-10-PCS; 2021-08-01)
PROC: 4A133B1 Monitoring of Arterial Pressure, Peripheral, Percutaneous Approach (ICD-10-PCS; 2021-08-01)
PROC: 4A133J1 Monitoring of Arterial Pulse, Peripheral, Percutaneous Approach (ICD-10-PCS; 2021-08-01)
PROC: 02HV33Z Insertion of Infusion Device into Superior Vena Cava, Percutaneous Approach (ICD-10-PCS; 2021-08-01)
PROC: 3E033XZ Introduction of Vasopressor into Peripheral Vein, Percutaneous Approach (ICD-10-PCS; 2021-08-01)
DX: A41.9 Sepsis, unspecified organism (principal); R65.21 Severe sepsis with septic shock; J96.01 Acute respiratory failure with hypoxia; N17.9 Acute kidney failure, unspecified; E87.2 Acidosis; J44.1 Chronic obstructive pulmonary disease with (acute) exacerbation; K52.9 Noninfective gastroenteritis and colitis, unspecified; Z20.822 Contact with and (suspected) exposure to COVID-19; Z66 Do not resuscitate; I10 Essential (primary) hypertension; K63.89 Other specified diseases of intestine; F15.10 Other stimulant abuse, uncomplicated; Z88.5 Allergy status to narcotic agent; Z88.0 Allergy status to penicillin; Z88.8 Allergy status to other drugs, medicaments and biological substances; K21.9 Gastro-esophageal reflux disease without esophagitis; E78.5 Hyperlipidemia, unspecified; J44.9 Chronic obstructive pulmonary disease, unspecified; Z98.890 Other specified postprocedural states; Z79.899 Other long term (current) drug therapy; D50.9 Iron deficiency anemia, unspecified
CPT/HCPCS: 31500; 36415; 36556; 36620; 51702; 71045; 74176; 76770; 80048; 80053; 80069; 82803; 83605; 83690; 83735; 84100; 84132; 85025; 87040; 94002; 94003; 94640; 94644; 96361; 96365; 96367; 96375; 99285-25; C1751; C9113; J0171; J0610; J1170; J1644; J1720; J1790; J1815; J1885; J1956; J2270; J2405; J2704; J7030; J7040; J7060; J7070; U0004